=== PATIENT | female | born 1945 | race Caucasian/White ===

== ENCOUNTER 2024-10-28 11:35 | Emergency (ER) | payer MEDICARE, SELFPAY ==
[2024-10-28 11:44] VITALS: BP 112/94; PULSE 80; RESP 20; TEMP 36.7; O2SAT 96
[2024-10-28 11:49] VITALS: BP 135/71
--- NOTE | 2024-10-28 11:50 | ED.URI ---
HPI - URI/Sore Throat General Chief Complaint: Upper Respiratory Infection Stated Complaint: Cough Source: patient Mode of arrival: ambulatory Limitations: no limitations History of Present Illness HPI Narrative: 79-year-old female presented for complaint of nasal congestion, cough, and headache. Onset 1 week.Endorses occasional wheeze. Not taking anything for symptoms. Denies chest pain, palpitations, sob, n/v/d/f/c. Related Data Home Medications ?Medication ?Instructions ?Recorded ?Confirmed ?Last Taken ?Type escitalopram oxalate 10 mg tablet 10 mg PO DAILY 10/28/24 Unknown History ezetimibe 10 mg tablet 10 mg PO DAILY 10/28/24 Unknown History fenofibrate 160 mg tablet 160 mg PO DAILY 10/28/24 Unknown History icosapent ethyl 1 gram capsule 2 g PO BID 10/28/24 Unknown History (Vascepa) metoprolol tartrate 50 mg tablet 50 mg PO Q12H 10/28/24 Unknown History ranolazine 500 mg tablet,extended 500 mg PO Q12H 10/28/24 Unknown History release,12 hr rosuvastatin 40 mg tablet 40 mg PO DAILY 10/28/24 Unknown History spironolactone 25 mg tablet 12.5 mg PO DAILY 10/28/24 Unknown History Allergies Allergy/AdvReac Type Severity Reaction Status Date / Time PAIN MEDS AdvReac Intermediate Nausea and Uncoded 10/28/24 11:52 Vomiting Review of Systems Review of Systems: CONSTITUTIONAL: Denies body aches, fever, chills, or sweats. EYES: Denies visual changes, redness, or discharge. ENT: reports rhinorrhea, congestion, denies sore throat, or otalgia. CARDIOVASCULAR: Denies chest pain, palpitations, or edema. RESPIRATORY: Reports cough, denies sob GASTROINTESTINAL: Denies abdominal pain, nausea, vomiting, or diarrhea. SKIN: Denies rash MUSCULOSKELETAL: Denies back pain, joint pain, or myalgia. NEUROLOGIC: Reports headache All systems reviewed & are unremarkable except as noted in HPI and below PMFSH Comments At time of signature, I have reviewed and agree with nursing past medical, surgical, social and family history unless otherwise noted. Please see nursing chart for further information. There is no relevant family history pertinent to the presenting complaint Exam Narrative: GENERAL: Well-appearing, in no acute distress. EYES: EOMI. No redness or drainage. Conjunctivae normal. ENT: Mucous membranes pink and moist. rhinorrhea. TMs normal bilaterally. Throat normal. Uvula midline. NECK: Normal AROM. Supple. CHEST: No respiratory distress. lungs clear to all chavarria. 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 No murmur appreciated. ABDOMEN: Soft, nontender, nondistended, normal active bowel sounds. EXTREMITIES: Normal range of motion. No edema. SKIN: Warm, dry, no rash. Capillary refill normal. Normal skin turgor. NEURO: Alert and oriented x3. Gait steady. PSYCH: Normal affect. Course Course Emergency Course: Patient is aware of diagnosis, understands and agrees to treatment plan. Anticipatory guidance given. Patient agrees to follow-up as directed and is aware of reasons to seek care at the emergency department. Portions of this record may have been created with voice recognition software Level of Care: Express Care Visit Vital Signs Vital signs: Vital Signs Temperature 98.1 F 10/28/24 11:44 Pulse Rate 80 10/28/24 11:44 Respiratory Rate 20 10/28/24 11:44 Blood Pressure 112/94 H 10/28/24 11:44 Pulse Oximetry 96 10/28/24 11:44 Oxygen Delivery Room Air 10/28/24 11:44 Temperature 98.1 F 10/28/24 11:44 Pulse Rate 80 10/28/24 11:44 Respiratory Rate 20 10/28/24 11:44 Blood Pressure 135/71 10/28/24 11:49 Pulse Oximetry 96 10/28/24 11:44 Oxygen Delivery Room Air 10/28/24 11:44 MDM - URI/Sore Throat MDM Narrative Medical decision making narrative: Discussed physical exam findings c/w bronchitis. Reviewed Rx. Advised supportive measures and signs/symptoms to go to the ER. Pt is appropriate for outpt treatment and f/u. Differential Diagnosis Differential diagnosis: Likely upper respiratory infection, sinusitis, viral infection and bronchitis Discharge Plan Discharge Clinical Impression: Bronchitis Patient Disposition: Home, Self-Care Condition: Stable Instructions: Antibiotic Form, Acute Bronchitis (ED) Additional Instructions: Acute bronchitis can be contagious because it is usually caused by infection with a virus or bacteria. It is usually for a few days but you can be contagious for up to one week. Avoid crowds until you do not have a fever and symptoms are improved Take medication as directed Recommendations: Flonase spray and Zyrtec (or Claritin/Kasie) over the counter Cough syrup may cause drowsiness; avoid driving or take it at night time. Tylenol 1000mg every 8 hours as needed for pain Symptomatic treatment includes: rest, fluids, and increase humidity of the air at home. Follow up with your primary care provider as needed in 1 week Go to the ER for worsening symptoms or concerns Patient Language: Algerian Prescriptions: New prednisone 20 mg tablet 40 mg PO DAILY 4 Days Qty: 8 0RF amoxicillin-pot clavulanate 875-125 mg tablet 1 tablet PO Q12H 7 Days Qty: 14 0RF No Action spironolactone 25 mg tablet 12.5 mg PO DAILY fenofibrate 160 mg tablet 160 mg PO DAILY icosapent ethyl [Vascepa] 1 gram capsule 2 g PO BID ranolazine 500 mg tablet extended release 12 hr 500 mg PO Q12H rosuvastatin 40 mg tablet 40 mg PO DAILY escitalopram oxalate 10 mg tablet 10 mg PO DAILY metoprolol tartrate 50 mg tablet 50 mg PO Q12H ezetimibe 10 mg tablet 10 mg PO DAILY Follow-up/Referrals: Damon,Eliseo Lion MD [Primary Care Provider] - Time of Disposition: 11:57
--- OUTSIDE RECORDS SUMMARY | 2024-11-02 08:55 | XMS_ITS | Clinical Summary ---
Author Organization [facility] Address [address] [place] [address]. [place], [place] [address] [place] [address] Care Team Providers Care Catalyst Impregnator Name Role Phone Armando Coles MD Unavailable Hiral Sexton MD Primary Care Provider +1- [phone] Allergies Active Allergy Reactions Criticality Noted Date Comments Codeine Unknown 03/20/2016 Meperidine Unknown 03/20/2016 Methadone Unknown 08/15/2021 Morphine Unknown 03/20/2016 Naloxone Unknown 03/20/2016 Opium Unknown 08/15/2021 Tramadol Hives 03/20/2016 Medications Aspirin 81 MG Cap Aspirin 81 mg; 1 by mouth every morning; 0; -Jul-2004; Active 4 Active Cholecalciferol (VITAMIN D3) 50 MCG (2000 UT) Tab Take 1 tablet (50 mcg total) by mouth daily. Active nitroglycerin 0.[address] 1 tablet (0.4 mg total) under the tongue every 5 (five) minutes as needed for Chest Pain. 25 tablet 3 1 Active B Complex-C Tab tablet Take 1 tablet by mouth daily. Active spironolactone (ALDACTONE) 25 MG tablet Take 0.5 tablets (12.5 mg total) by mouth daily. 45 tablet 3 2 Active ranolazine ER (RANEXA) 500 MG 12 hr tablet Take 1 tablet (500 mg total) by mouth 2 (two) times daily. 60 tablet 11 2 Active ezetimibe (ZETIA) 10 MG tablet Take 1 tablet (10 mg total) by mouth daily. 90 tablet 3 3 Active fenofibrate 160 MG tabletIndications:M ixed hyperlipidemia TAKE 1 TABLET(160 MG) BY MOUTH DAILY 90 tablet 3 Active magnesium oxide (MAG-OX) 400 (240 Mg) MG tablet Take 1 tablet (400 mg total) by mouth daily. 30 tablet 3 Active escitalopram (LEXAPRO) 10 MG tabletIndications:M ixed hyperlipidemia TAKE 1 TABLET(10 MG) BY MOUTH DAILY 90 tablet 3 Active rosuvastatin (CRESTOR) 40 MG tablet Take 1 tablet (40 mg total) by mouth nightly at bedtime. 90 tablet 3 3 Active metoprolol tartrate (LOPRESSOR) 50 MG tabletIndications:M ixed hyperlipidemia TAKE 1 TABLET(50 MG) BY MOUTH TWICE DAILY 180 tablet 3 Active VASCEPA 1 g capsule Take 2 capsules (2 g total) by mouth 2 (two) times daily. Take with food. 270 capsule 3 4 Active Active Problems Problem Noted Date Diagnosed Date Pre-diabetes 03/15/2022 Muscle spasm 03/15/2022 Primary hypertension 03/15/2022 Anxiety 03/15/2022 Vitamin D deficiency 03/15/2022 Ulcer of rectum 03/15/2022 Diarrhea, unspecified type 03/15/2022 Coronary artery disease invo lving [place] coronary artery of [place] heart without angina pectoris 08/25/2021 Hx of CABG 08/25/2021 Diastolic dysfunction 08/25/2021 Nonrheumatic mitral valve regurgitation 08/25/20 21 Mixed hyperlipidemia 08/25/2021 Concentric left ventricular hypertrophy 08/25/20 21 Resolved Problems Problem Noted Date Diagnosed Date Resolved Date Preop cardiovascular exam 06/29/2022 Immunizations Name Administration Dates Next Due Fluzone High Dose - >Age 65 (Prefilled Syringe) 08/05/2022 Influenza Adult (Generic) 07/21/2021 MODERNA COVID-19 (12+) MRNA, LNP-S, PF, 100 MCG/ 0.5 ML DOSE 12/23/2020,11/25/2020 MODERNA COVID-19 (FLORIST MATT COLIN), MRNA, LNP-S, PF, 50 MCG/ 0.25 ML DOSE 09/16/2021 Family History Medical History Relation Comments Lung Cancer Father CABG Mother Heart Attack Mother Heart Attack Sister Stent Cardiac Sister PTCA Sudden Sister Relation Status Comments Brother 1 Brother 2 Alive Father (Age 57) Maternal Grandfather Maternal Grandmother Mother (Age 76) Paternal Grandfather Paternal Grandmother Sister Social History Tobacco Use Types Packs/Day Years Used Date Smoking Tobacco: Former Cigarettes 0.3 15 1 977 - 1991 Smokeless Tobacco: Never Tobacco Cessation:Counseling Given: Not Answered Alcohol Use Standard Drinks/Week Comments Yes 0 (1 standard drink = 0.6 oz pur e alcohol) occasional PHQ-2 Answer Date Recorded Patient Health Questionnaire-2 Score 0 03/18/2023 Comments No Sex and Gender Information Value Date Recorded Sex Assigned at Not on file Legal Sex Female 6:52 PM CDT Gender Identity Not on file Sexual Orientation Not on file Occupation Industry Job Start Date Job End Date Not on file Not on file Not on file Not on file Last Filed Vital Signs Vital Sign Reading Time Taken Comments Blood Pressure 112/68 06/30/2023 9:27 AM CDT Pulse 70 06/30/2023 9:27 AM CDT Temperature 36.3 ??C (97.3 ??F) 03/18/2023 9:29 AM CD T Respiratory Rate 18 06/30/2023 9:22 AM CDT Oxygen Saturation 96% 03/18/2023 9:29 AM CDT Inhaled Oxygen Concentration - - Weight 68.6 kg (151 lb 3.2 oz) 06/30/2023 9:22 A M CDT Height 160 cm (5' 3 ) 06/30/2023 9:22 AM CDT Body Mass Index 26.78 06/30/2023 9:22 AM CDT Plan of Treatment Health Maintenance Due Date Last Done Comments ASCVD Statin 1945 Pneumococcal Vaccine: 65+ Years (1 of 2 - PCV) 1952 Hepatitis C 1964 DTaP, Tdap and Td Vaccines (1 - Tdap) 1965 Zoster Vaccines (1 of 2) 1996 Annual Medicare Wellness Visit 2011 RSV Immunization or 60+ Years (1 - 1-dose 75+ series) 2021 ASCVD LDL 03/18/2024 03/18/2023, 12/0 02/2022, 03/13/2022, Additional history exists PHQ-2 (Physician [place]) 03/18/2024 03/18/2023 COVID-19 Vaccine ( season) 2024 09/16/2021, 12/23/2020, 11/25/2020 Influenza Adult (#1) 2024 08/05/2022, 07/21/20 21 Dexa Scan (General) Completed 04/19/2023 Meningococcal B Vaccine Aged Out No l onger eligible based on patient's age to complete this topic Meningococcal Vaccine Aged Out No kellen jessica eligible based on patient's age to complete this topic RSV Immunizations Under 20 Months Aged Out No longer eligible based on patient's age to complete this topic Procedures Procedure Name Priority Date/Time Associated Diagnosis Comments BONE DENSITY/DEXA Routine 04/19/2023 9:2 8 AM CDT Post-menopausal LIPID PANEL Routine 03/18/2023 10:14 AM CDT Mixed hyperlipidemia from Last 3 Months or Most Recently Relevant to Health Maintenance Results * BONE DENSITY/DEXA (04/19/2023 9:28 AM CDT) Anatomical Region Laterality Modality Bone Bone Density 04/19/2023 2:14 PM CDT Impressions 04/19/2023 2:15 PM CDT Impression: Low bone mass (osteopenia). Ordered By: DESTIN BARRETT Interpreted By: Danny Traore DO, 04/19/2023 2:14 PM Narrative 04/19/2023 2:15 PM CDT Examination: DEXA Bone densitometry Clinical history: Postmenopausal. Osteoporosis screening. Technique: DEXA bone mineral density evaluation was performed in the AP projection over the lumbar spine and over both hips in the AP projection utilizing standard imaging techniques. COMPARISON: None. Assessment: The BMD measured at the AP spine L1-L4 is 0.931 g/cm2 with a T-score of -2.1 and a Z-Score of ??-0.4. The BMD of the total left femur is 0.822 g/cm2, the femoral neck measures 0.763 g/cm2, with a T-score of -2.0 and a Z-Score of -0.1. The BMD of the total right femur is 0.838 g/cm2, the femoral neck measures 0.782 g/cm2, with a T-score of -1.8 and a Z-Score of ??0.1. Based upon the above measurements, the patient has low bone mass. Per FRAX, the patient's 10 year risk of major osteoporotic fracture is 20.9%. The 10 year risk of hip fracture is 5.3%. Based on these results, a followup exam is recommended in 2 years or sooner if clinically indicated. Procedure Note Danny Traore DO - 04/19/2023 Examination: DEXA Bone densitometry Clinical history: Postmenopausal. Osteoporosis screening. Technique: DEXA bone mineral density evaluation was performed in the APprojection over the lumbar spine and over both hips in the AP projectionutilizing standard imaging techniques. COMPARISON: None. Assessment: The BMD measured at the AP spine L1-L4 is 0.931 g/cm2 with a T-score of-2.1 and a Z-Score of -0.4. The BMD of the total left femur is 0.822 g/cm2, the femoral neck measures0.763 g/cm2, with a T-score of -2.0 and a Z-Score of -0.1. The BMD of the total right femur is 0.838 g/cm2, the femoral neck measures0.782 g/cm2, with a T-score of -1.8 and a Z-Score of 0.1. Based upon the above measurements, the patient has low bone mass. Per FRAX, the patient's 10 year risk of major osteoporotic fracture is20.9%. The 10 year risk of hip fracture is 5.3%. Based on these results, a followup exam is recommended in 2 years orsooner if clinically indicated. Impression: Low bone mass (osteopenia). Ordered By: DESTIN BARRETT Interpreted By: Danny Traore DO, 04/19/2023 2:14 PM Destin Barrett MD DEXA Final Result * (ABNORMAL) LIPID PANEL (03/18/2023 10:14 AM CDT) CHOLESTEROL 135 <200 MG/DL 03/18/2023 1:37 PM CDT [facility] TRIGLYCERIDES 206(H) <150 MG/DL 03/18/2023 1:37 PM CDT [facility] HDL 39(L) >40 MG/DL 03/18/2023 1:37 PM CDT [facility] LDL-C 55 <100 MG/DL 03/18/2023 1:37 PM CDT [facility] VLDL CALCULATION 41(H) 5 - 28 MG/DL 03/18/2023 1:37 PM CDT [facility] CHOL/HDL RATIO 3.5 0.0 - 4.0 03/18/2023 1:37 PM CDT [facility] LDL/HDL 1.4 0.41 - 2.13 03/18/2023 1:37 PM CDT [facility] NON HDL CHOLESTEROL 96 <140 MG/DL 03/18/2023 1:37 PM CDT [facility] 03/18/2023 10:1 4 AM CDT Hiral Mohamud MD LABORATORY Final Resu lt [facility] [address] [place] [address], [place] [phone] from Last 3 Months or Most Recently Relevant to Health Maintenance Insurance [employer] Care Teams Catalyst Impregnator Relationship Specialty Start Date End Date Hiral Mohamud MD [address] [place] [address] PCP - General FAMILY PRACTICE 03/13/22 Armando Coles MD Consulting Physician CARDIOVASCULAR DISEASE 08/14/21
--- OUTSIDE RECORDS SUMMARY | 2024-11-02 08:55 | XMS_ITS | Encounter Summary ---
Author Organization [facility] Address [facility]. [place], [place] [address] [place] [address] Care Team Providers Care Cold Roll Inspector Name Role Phone Armando Coles MD [facility] Primary Care Provider [phone]- [phone] Encounter Details Date Type Department Care Team (Late st Contact Info) Description 02/22/2023 [employer] Thankyou[employer] Hotel [employer] Grouph[employer] Message Enc [facility] Medical Group - [facility] [address] [place] [address] Hiral Mohamud MD [address] [place] [address] Refill Social History Tobacco Use Types Packs/Day Years Used Date Smoking Tobacco: Former Cigarettes 0.3 15 1 977 - 1992 Smokeless Tobacco: Never Alcohol Use Standard Drinks/Week Comments Yes 0 (1 standard drink = 0.6 oz pur e alcohol) occasional PHQ-2 Answer Date Recorded PHQ-2 Score - If the patient scores above 3, please move on to questions 3-9 0 09/14/2022 Comments No Sex and Gender Information Value Date Recorded Sex Assigned at Not on file Legal Sex Female 6:52 PM CDT Gender Identity Not on file Sexual Orientation Not on file Occupation Industry Job Start Date Job End Date Not on file Not on file Not on file Not on file documented as of this encounter Plan of Treatment Not on file documented as of this encounter Visit Diagnoses Not on filedocumented in this encounter Additional Health Concerns Assessment Noted Time PHQ-9 Depression Total Score: 0 10/22/19 22 10:51 AM KITCHEN FOOD SERVER documented as of this encounter Care Teams Cold Roll Inspector Relationship Specialty Start Date End Date Hiral Mohamud MD [facility] [place] [address] PCP - General FAMILY PRACTICE 03/13/22 Armando Coles MD Consulting Physician CARDIOVASCULAR DISEASE 08/14/21 documented as of this encounter
--- OUTSIDE RECORDS SUMMARY | 2024-11-02 08:55 | XMS_ITS | Encounter Summary ---
Author Organization [facility] Address [address] [place] [address]. [place], [place] [id number] [place] [address] Care Team Providers Care Water Rights Specialist Name Role Phone Armando Coles MD Unavailable [facility] Hiral Gutierrez MD Primary Care Provider [phone]- [phone] Encounter Details Date Type Department Care Team (Late st Contact Info) Description 06/23/2023 [facility] [place] [phone] Armando Coles MD Social History Tobacco Use Types Packs/Day Years [...] Total Score: 0 10/22/19 22 10:51 AM AVIONICS TEST TECHNICIAN documented as of this encounter Care Teams Water Rights Specialist Relationship Specialty Start Date End Date Hiral Mohamud MD [address] [place] [address] PCP - General FAMILY PRACTICE 03/13/22 Armando Coles MD Consulting Physician CARDIOVASCULAR DISEASE 08/14/21 documented as of this encounter
--- OUTSIDE RECORDS SUMMARY | 2024-11-02 08:55 | XMS_ITS | Encounter Summary ---
Author Organization [facility] Address [facility]. [place], [place] [address] [place] [address] Care Team Providers Care Prison Keeper Name Role Phone Armando Coles MD [facility] Hiral Sexton MD Primary Care Provider + [phone] Encounter Details Date Type Department Care Team (Late st Contact Info) Description 08/24/2023 [employer] Message [facility] - [place] [phone] [employer] Provider Needed Immunizations Social History Tobacco Use Types Packs/Day Years Used Date Smoking Tobacco: Former Cigarettes 0.3 15 1 7 - 1991 Smokeless Tobacco: Never Alcohol Use Standard Drinks/Week [...] Total Score: 0 10/22/19 22 10:51 AM EDITOR AT LARGE documented as of this encounter Care Teams Prison Keeper Relationship Specialty Start Date End Date Hiral Mohamud MD [address] [place] [address] PCP - General FAMILY PRACTICE 03/13/22 Armando Coles MD Consulting Physician CARDIOVASCULAR DISEASE 08/14/21 documented as of this encounter
--- OUTSIDE RECORDS SUMMARY | 2024-11-02 08:56 | XMS_ITS | Encounter Summary ---
Author Organization [facility] Address [facility]. [place], [place] [id number] [place] [address] Care Team Providers Care Candy Mixer Name Role Phone Armando Coles MD [facility] Primary Care Provider [phone]- [phone] Encounter Details Date Type Department Care Team (Late st Contact Info) Description 08/24/2022 MyChart Message Enc [facility] Medical [facility] - [facility] [address] [place] [phone] Hiral Mohamud MD [address] [place] [address] Refills Social History Tobacco Use Types Packs/Day Years Used Date Smoking Tobacco: Former Cigarettes 0.3 15 1 977 - 1992 Smokeless Tobacco: Never Alcohol Use Standard Drinks/Week Comments Yes 0 (1 standard drink = 0.6 oz pur e alcohol) occasional PHQ-2 Answer Date Recorded PHQ-2 Score - If the patient scores above 3, please move on to questions 3-9 0 03/13/2022 Comments No Sex and Gender Information Value Date Recorded Sex Assigned at Not on file Legal Sex Female 6:52 PM CDT Gender Identity Not on file Sexual Orientation Not on file Occupation Industry Job Start Date Job End Date Not on file Not on file Not on file Not on file COVID-19 Exposure Response Date Recorded In the last 10 days, have yo u been in contact with someone who was confirmed or suspected to have Coronavirus/COVID-19? No / Unsure 08/05/2022 11:40 AM CDT documented as of this encounter Plan of Treatment Not on file documented as of this encounter Visit Diagnoses Not on filedocumented in this encounter Additional Health Concerns Assessment Noted Time PHQ-9 Depression Total Score: 0 10/22/19 22 10:51 AM RETINAL SURGEON documented as of this encounter Care Teams Candy Mixer Relationship Specialty Start Date End Date Hiral Mohamud MD [address] [place] [address] PCP - General FAMILY PRACTICE 03/13/22 Armando Coles MD Consulting Physician CARDIOVASCULAR DISEASE 08/14/21 documented as of this encounter
--- OUTSIDE RECORDS SUMMARY | 2024-11-02 08:56 | XMS_ITS | Encounter Summary ---
Author Organization [facility] Address [facility]6 [facility]. [place], [place] [address] [place] [address] Care Team Providers Care Model And Mold Maker Plaster Name Role Phone Armando Coles MD [facility] MD Primary Care Provider +1- [phone] Encounter Details Date Type Department Care Team (Late st Contact Info) Description 07/13/[address] [facility] - [facility] [address] [place], [place] [address] Hiral Mohamud MD [address] [place] [address] Refills Social History Tobacco Use Types Packs/Day [...] suspected to have Coronavirus/COVID-19? No / Unsure 06/29/2022 11:53 AM CDT documented as of this encounter Plan of Treatment Not on file documented as of this encounter Visit Diagnoses Not on filedocumented in this encounter Additional Health Concerns Assessment Noted Time PHQ-9 Depression Total Score: 0 10/22/19 22 10:51 AM CSW documented as of this encounter Care Teams Model And Mold Maker Plaster Relationship Specialty Start Date End Date Hiral Mohamud MD [address] [place] [address] PCP - General FAMILY PRACTICE 03/13/22 Armando Coles MD Consulting Physician CARDIOVASCULAR DISEASE 08/14/21 documented as of this encounter
--- OUTSIDE RECORDS SUMMARY | 2024-11-02 08:56 | XMS_ITS | Encounter Summary ---
Author Organization [facility] Address [facility]6 [facility]. [place], [place] [address] [place] [address] Care Team Providers Care Federal Judicial Law Clerk Name Role Phone Armando Coles MD [facility] MD Primary Care Provider [phone] Encounter Details Date Type Department Care Team (Late st Contact Info) Description 04/09/2022 MyChart Message Enc [facility] [address] [place], [place] [address] Hiral Mohamud MD [address] [place] [address] Refills Social History Tobacco Use Types Packs/Day [...] suspected to have Coronavirus/COVID-19? No / Unsure 03/13/2022 8:03 AM CDT documented as of this encounter Plan of Treatment Not on file documented as of this encounter Visit Diagnoses Not on filedocumented in this encounter Additional Health Concerns Assessment Noted Time PHQ-9 Depression Total Score: 0 10/22/19 22 10:51 AM SUPERVISOR FISH BAIT PROCESSING documented as of this encounter Care Teams Federal Judicial Law Clerk Relationship Specialty Start Date End Date Hiral Mohamud MD [address] [place] [address] PCP - General FAMILY PRACTICE 03/13/22 Armando Coles MD Consulting Physician CARDIOVASCULAR DISEASE 08/14/21 documented as of this encounter
--- OUTSIDE RECORDS SUMMARY | 2024-11-02 08:56 | XMS_ITS | Encounter Summary ---
Author Organization [facility] Address [address] [place] [address]. [place], [place] [address] [place] [address] Care Team Providers Care Aircraft Sales Representative Name Role Phone Armando Coles MD Unavailable [facility] e Hiral Mohamud MD Primary Care Provider [phone]- [phone] Encounter Details Date Type Department Care Team (Late st Contact Info) Description 10/26/2022 [email or web address] Message Enc [facility] eld [address] [place] [address] Armando Coles MD Refills Social History Tobacco Use Types Packs/Day Years Used Date Smoking Tobacco: Former Cigarettes 0.3 15 1 977 - 1991 Smokeless Tobacco: Never Alcohol Use [...] Total Score: 0 10/22/19 22 10:51 AM DENTURE CONTOUR WIRE SPECIALIST documented as of this encounter Care Teams Aircraft Sales Representative Relationship Specialty Start Date End Date Hiral Mohamud MD [address] [place] [address] PCP - General FAMILY PRACTICE 03/13/22 Armando Coles MD Consulting Physician CARDIOVASCULAR DISEASE 08/14/21 documented as of this encounter
--- OUTSIDE RECORDS SUMMARY | 2024-11-02 08:56 | XMS_ITS | Clinical Summary ---
Author Organization [employer] [address] [place] [place] Address [address] [place] [address] Care Team Providers Care Spoon Maker Name Role Phone Eliseo Jose MD Primary Care Provider [phone] Allergies Active Allergy Reactions Criticality Noted Date Comments Codeine Unknown 03/20/2016 Meperidine Unknown 03/20/2016 Methadone Unknown 08/15/2021 Morphine Unknown 03/20/2016 Naloxone Unknown 03/20/2016 Opium Unknown 08/15/2021 Tramadol Hives High 03/20/2016 Medications CALCIUM CARBONATE-VITAMIN D3 ORAL Take by mouth. Active aspirin (ANIA CHEWABLE) 81 mg Tablet, Chewable Take 81 mg by mouth daily. Active viatamin B complex-vitamin K-tsueobgr-jczd-fo lic acid 106 mg iron- 1 mg Tablet Take 1 Tablet by mouth daily. Active hyoscyamine sulfate 0.125 mg tabletIndications: Chronic diarrhea Take 1 Tablet (0.125 mg) by mouth every 4 hours as needed for Other (See Comment) (diarrhea abd cramping). 90 Tablet 1 3 Active nitroglycerin (NITROSTAT) 0.4 mg Tablet, Sublingual Place 0.4 mg under tongue every 5 minutes as needed. 1 Active ezetimibe (ZETIA) 10 mg tablet Take 1 Tablet (10 mg) by mouth daily. 100 Tablet 3 4 Active icosapent ethyL (Vascepa) 1 gram Capsule Take 2 Capsules (2 Grams) by mouth 2 times daily with meals. 120 Capsule 6 4 Active diclofenac sodium (VOLTAREN) 1 % gel Apply 2 Grams to affected area 4 times daily. 300 Gram 3 4 Active gabapentin (NEURONTIN) 300 mg capsule Take 1 Capsule (300 mg) by mouth daily at bedtime. 30 Capsule 6 4 Active cyclobenzaprine (FLEXERIL) 5 mg TabletIndications: Osteoarthritis of cervical spine, unspecified spinal osteoarthritis complication status Take 1 Tablet (5 mg) by mouth 2 times daily as needed for Spasm. 60 Tablet 2 4 Active metoprolol tartrate (LOPRESSOR) 50 mg tablet Take 1 Tablet (50 mg) by mouth 2 times daily. 180 Tablet 2 4 Active escitalopram oxalate (LEXAPRO) 10 mg tablet Take 1 Tablet (10 mg) by mouth daily. 90 Tablet 2 4 Active rosuvastatin (CRESTOR) 40 mg tabletIndications: Coronary artery disease involving [place] coronary artery of [place] heart without angina pectoris Take 1 Tablet (40 mg) by mouth daily. 100 Tablet 3 4 Active spironolactone (ALDACTONE) 25 mg tablet Take 0.5 Tablets (12.5 mg) by mouth daily. 50 Tablet 3 4 Active fenofibrate (LOFIBRA) 160 mg Tablet Take 1 Tablet (160 mg) by mouth daily. 100 Tablet 3 4 Active ranolazine ER (RANEXA) 500 mg Extended Release 12 hour tablet Take 1 Tablet (500 mg) by mouth every 12 hours. 200 Tablet 3 5 Active ranolazine ER (RANEXA) 500 mg Extended Release 12 hour tablet Take 1 Tablet (500 mg) by mouth every 12 hours. 180 Tablet 3 3 025 Discontin ued(Reord er) Active Problems Problem Noted Date Diagnosed Date Tricuspid valve insufficiency 10/05/2023 Anxiety 03/15/2022 Pre-diabetes 03/15/2022 Primary hypertension 03/15/2022 Vitamin D deficiency 03/15/2022 Coronary artery disease invo lving [place] coronary artery of [place] heart without angina pectoris 08/25/2021 Hx of CABG 08/25/2021 Mixed hyperlipidemia 08/25/2021 Nonrheumatic mitral valve regurgitation 08/25/20 21 Diastolic dysfunction 08/25/2021 Encounters Date Type Department Care Team Description 10/12/2024 [facility] Primary Care [place] [address] [place] [address] Eliseo Jose MD 09/26/2024 1:15 PM COSMETIC SALES ADVISOR Office Visit [facility] [address] [facility] [address] [place] [address] James Rosario MD Coronary artery disease involving [place] coronary artery of [place] heart without angina pectoris (Primary Dx); Hx of CABG; Nonrheumatic mitral valve regurgitation; Tricuspid valve insufficiency, unspecified etiology; Diastolic dysfunction; Mixed hyperlipidemia; Primary hypertension 08/29/2024 Refill [facility] Primary Care [facility] [address] [place] [address] Eliseo Jose MD 08/23/2024 12:40 PM COSMETIC SALES ADVISOR - 08/23/2024 11:59 PM COSMETIC SALES ADVISOR Hospital Encounter [address] [place] [address] Eliseo Jose MD Discharge Disposition: Home or Self Care from Last 3 Months Immunizations Immunization Administration Dates Next Due (SPIKEVAX) (12 YRS UP PRIMAR Y SERIES) COVID-19 VACCINE - MRNA-1273(PF) 100 MCG/0.5 ML IM SUSP 12/23/2020,11/25/2020 INFLUENZA VACCINE HIGH DOSE QUADRIVALENT 65 YR UP PF IM 08/17/2023,08/05/2022 INFLUENZA VACCINE HIGH DOSE TRIVALENT SPLIT VIRUS, (65 YR UP), 0.5ML (PF), IM 06/22/2024 Influenza, Unspecified Formulation 07/21/2021 Family History Medical History Relation Name Comments High Cholesterol Daughter 1 High Cholesterol Daughter 2 Lung Cancer Father Lung Cancer Maternal Grandfather Diabetes Maternal Grandmother High Cholesterol Mother No Known Problems Paternal Grandfather Dementia Paternal Grandmother Heart Attack Paternal Grandmother Heart Attack Sister High Cholesterol Son Colon Cancer Neg Hx Relation Name Status Comments Daughter 1 Daughter 2 Alive Father Maternal Grandfather Maternal Grandmother Mother Paternal Grandfather Paternal Grandmother Sister Son Social History Tobacco Use Types Packs/Day Years Used Date Smoking Tobacco: Former Cigarettes Q uit: 1991 Passive Smoke Exposure: Never Smokeless Tobacco: Never Tobacco Cessation:Counseling Given: Not Answered Alcohol Use Standard Drinks/Week Comments Yes 2 (1 standard drink = 0.6 oz pur e alcohol) occ Feeling Safe Answer Date Recorded Are you in a relationship wi th someone who hurts you emotionally and/or physically? No 07/11/2024 Comments No Sex and Gender Information Value Date Recorded Sex Assigned at Not on file Legal Sex Female 1:45 PM CDT Gender Identity Not on file Sexual Orientation Not on file Last Filed Vital Signs Vital Sign Reading Time Taken Comments Blood Pressure 128/70 09/26/2024 1:14 PM COSMETIC SALES ADVISOR Pulse 63 09/26/2024 1:14 PM COSMETIC SALES ADVISOR Temperature 36.4 ??C (97.6 ??F) 07/11/2024 11:50 AM C DT Respiratory Rate 18 07/11/2024 12:10 PM CDT Oxygen Saturation 95% 09/26/2024 1:14 PM COSMETIC SALES ADVISOR Inhaled Oxygen Concentration - - Weight 69.4 kg (153 lb) 09/26/2024 1:14 PM COSMETIC SALES ADVISOR Height 157.5 cm (5' 2 ) 09/26/2024 1:14 PM COSMETIC SALES ADVISOR Body Mass Index 27.98 09/26/2024 1:14 PM COSMETIC SALES ADVISOR Plan of Treatment Upcoming Encounters Date Type Department Care Team (Late st Contact Info) Description 12/21/2024 11:20 AM CDT Office Visit [facility] Primary Care [address] [place] [address] Eliseo Jose MD [address] [place] [address] [address] [place] [address] 04/03/2025 1:15 PM CDT Office Visit [facility] [address] [facility] [address] [place] [address] James Rosario MD [facility] [address] [place] [address] Health Maintenance Due Date Last Done Comments DTAP/TDAP/TD VACCINES (1 - Tdap) 1965 PNEUMOCOCCAL VACCINE 65+ YEA RS (1 of 1 - PCV) 1996 ZOSTER VACCINE (1 of 2) 1996 RSV VACCINE (60+ or ) (1 - 1-dose 75+ series) 2021 COVID-19 Vaccine (4 - 2023-2 5 season) 2024 09/16/2021, 12/23/2020, 11/25/2020 [place] Prev entative Visit/Annual Wellness Visit 10/11/2024 OSTEOPOROSIS SCREENING Completed 04/19/2023, 2022 INFLUENZA VACCINE Completed 06/22/2024, , 08/05/2022 COLORECTAL SCREENING Discontinued 07/11/2024, 07/11/20 24 Colorectal Cancer Screening Discontinued FIT-DNA Q 3 years Discontinued FIT/FOBT Q 1 year Discontinued Flex Sig/CT Colonography Q 5 years Discontinued Procedures Procedure Name Priority Date/Time Associated Diagnosis Comments MAMMO 3D TERE SCREEN BILAT W OR WO CAD Routine 08/23/2024 12:54 PM COSMETIC SALES ADVISOR Visit for screening mammogram COLONOSCOPY REPORT 07/11/2024 11 :49 AM CDT from Last 3 Months or Most Recently Relevant to Health Maintenance Results * MAMMO 3D TERE SCREEN BILAT W OR WO CAD (08/23/2024 12:54 PM COSMETIC SALES ADVISOR) Anatomical Region Laterality Modality Breast Bilateral Mammography 08/23/2024 12:5 4 PM COSMETIC SALES ADVISOR Impressions 08/23/2024 1:32 PM COSMETIC SALES ADVISOR IMPRESSION: No mammographic evidence of malignancy. RECOMMENDATIONS: Routine screening mammogram in one year. DICTATION LOCATION: [facility] ?? Narrative 08/23/2024 1:32 PM COSMETIC SALES ADVISOR BILATERAL FULL-FIELD DIGITAL SCREENING MAMMOGRAM WITH CAD WITH 3D TOMOSYNTHESIS DATE: 08/23/2024 12:54 PM HISTORY: Routine screening. TECHNIQUE: Full-field digital craniocaudal and mediolateral oblique projections of both breasts were obtained. Low-dose full-field digital breast tomosynthesis examination was performed with 2D and 3D acquisitions. Examination is read in conjunction with computer aided detection. COMPARISON: 2019, 2018, 2017. BREAST COMPOSITION: There are scattered areas of fibroglandular density. FINDINGS: No suspicious mass, suspicious microcalcifications, or architectural distortion in either breast is identified. Since the prior study, there has been no significant interval change. The computer aided diagnosis detects no significant abnormality. OVERALL FINAL ASSESSMENT: ??BI-RADS CATEGORY 1 : Negative Procedure Note Estuardo Cain MD - 08/23/2024 BILATERAL FULL-FIELD DIGITAL SCREENING MAMMOGRAM WITH CAD WITH 3D TOMOSYNTHESIS DATE: 08/23/2024 12:54 PM HISTORY: Routine screening. TECHNIQUE: Full-field digital craniocaudal and mediolateral oblique projections of both breasts were obtained. Low-dose full-field digital breast tomosynthesis examination was performed with 2D and 3D acquisitions. Examination is read in conjunction with computer aided detection. COMPARISON: 2019, 2018, 2017. BREAST COMPOSITION: There are scattered areas of fibroglandular density. FINDINGS: No suspicious mass, suspicious microcalcifications, or architectural distortion in either breast is identified. Since the prior study, there has been no significant interval change. The computer aided diagnosis detects no significant abnormality. OVERALL FINAL ASSESSMENT: BI-RADS CATEGORY 1 : Negative IMPRESSION: No mammographic evidence of malignancy. RECOMMENDATIONS: Routine screening mammogram in one year. DICTATION LOCATION: [facility] us Eliseo Jose MD MAMMO ORDERABLES Final Result * COLONOSCOPY REPORT (07/11/2024 11:49 AM CDT) Narrative Procedure Note Jennifer Saldivar MD - 07/11/2024 11:49 AM CDT [facility] Endoscopy Patient Name: Martine Manzo Procedure Date: 07/11/2024 Date of : 1945 Attending MD: Jennifer Saldivar MD, Procedure: Colonoscopy Indications: Screening for colorectal malignant neoplasm Providers: Jennifer Saldivar MD Referring MD: Eliseo Jose MD Medicines: Monitored Anesthesia Care Complications: No immediate complications. Procedure: Informed consent was obtained for the procedure, including moderate sedation after risks were discussed. Based on the pre-procedure assessment, including review of the patient's medical history, medications, allergies, and review of systems, the patient was deemed to be an appropriate candidate for sedation. A timeout was performed. Continuous ECG monitoring, pulse oximetry, blood pressure monitoring, and direct observation were performed. The Colonoscope was introduced through the anus and advanced to the cecum, identified by appendiceal orifice and ileocecal valve. The colonoscopy was somewhat difficult due to a redundant colon. The patient tolerated the procedure well. The quality of the bowel preparation was excellent. The ileocecal valve, appendiceal orifice, and rectum were photographed. Estimated Blood Loss: Estimated blood loss: none. Findings: The perianal and digital rectal examinations were normal. Right colon was evaluated twice in forward view Multiple medium-mouthed and small-mouthed diverticula were found in the sigmoid colon, descending colon and ascending colon. Internal hemorrhoids were found during retroflexion. The hemorrhoids were small. Long redundant colon The exam was otherwise without abnormality on direct and retroflexion views. Impression: - Diverticulosis in the sigmoid colon, in the descending colon and in the ascending colon. - Internal hemorrhoids. - The examination was otherwise normal on direct and retroflexion views. - No specimens collected. Recommendation: - Discharge patient to home. - Resume previous diet. - Continue present medications. - Given age and no prior history of adenomatous polyps, reasonable to stop colon cancer screening at this time Jennifer Saldivar MD 07/11/2024 11:49:07 AM This report has been signed electronically. Number of Addenda: [phone] ; [place] [address] Jennifer Saldivar MD GI PROCEDURE ORDERABLES F inal Result from Last 3 Months or Most Recently Relevant to Health Maintenance Insurance [employer] CHOICE PPO [facility] Care Teams Spoon Maker Relationship Specialty Start Date End Date Eliseo Jose MD [address] [place] [address] PCP - General Internal Medicine 08/17/23
--- OUTSIDE RECORDS SUMMARY | 2024-11-02 08:56 | XMS_ITS | Encounter Summary ---
Author Organization [facility] Address [facility]. [place], [place] [address] [place] [address] Care Team Providers Care Xerox Machine Assembler Name Role Phone Armando Coles MD [facility] MD Primary Care Provider [phone]- [phone] Encounter Details Date Type Department Care Team (Late st Contact Info) Description 01/12/2023 [email or web address] Message Enc [facility] [address] [place] [address] Hiral Mohamud MD [address] [place] [address] Refills Social History Tobacco Use Types Packs/Day [...] Total Score: 0 10/22/19 22 10:51 AM MEDIA CENTER ASSISTANT documented as of this encounter Care Teams Xerox Machine Assembler Relationship Specialty Start Date End Date Hiral Mohamud MD [facility] [place] [address] PCP - General FAMILY PRACTICE 03/13/22 Armando Coles MD Consulting Physician CARDIOVASCULAR DISEASE 08/14/21 documented as of this encounter
--- OUTSIDE RECORDS SUMMARY | 2024-11-02 08:56 | XMS_ITS | Encounter Summary ---
Author Organization [facility] Address [facility]. [place], [place] [address] [place] [address] Care Team Providers Care Assistant Customer Service Manager Name Role Phone Armando Coles MD [facility] MD Primary Care Provider [phone]- [phone] Encounter Details Date Type Department Care Team (Late st Contact Info) Description 11/19/2022 BehavioSect Message Enc [facility] - [facility] [address] [place] [address] Hiral Mohamud MD [address] [place] [address] REFILLS Social History Tobacco Use Types Packs/Day Years [...] Total Score: 0 10/22/19 22 10:51 AM COMMISSION BROKER documented as of this encounter Care Teams Assistant Customer Service Manager Relationship Specialty Start Date End Date Hiral Mohamud MD [facility] [place] [address] PCP - General FAMILY PRACTICE 03/13/22 Armando Coles MD Consulting Physician CARDIOVASCULAR DISEASE 08/14/21 documented as of this encounter
--- OUTSIDE RECORDS SUMMARY | 2024-11-02 08:56 | XMS_ITS | Encounter Summary ---
Author Organization [facility] Address [address] [place] [address]. [place], [place] [address] [place] [address] Care Team Providers Care Valet Attendant Name Role Phone Bharti Hancock MD Primary Care Provider [phone] Armando Coles MD [facility] Primary Care Provider +[phone]- [phone] Encounter Details Date Type Department Care Team (Late st Contact Info) Description 09/15/2021 IncellDx Message Enc [facility] eld [address] [place] [address] Armando Coles MD follow up Social History Tobacco Use Types Packs/Day Years Used Date Smoking Tobacco: Former Cigarettes Q uit: 1991 Smokeless Tobacco: Never Alcohol Use Standard Drinks/Week Comments Yes 0 (1 standard drink = 0.6 oz pur e alcohol) occasional PHQ-2 Answer Date Recorded PHQ-2 Score - If the patient scores above 3, please move on to questions 3-9 0 08/13/2021 Comments No Sex and Gender Information Value Date Recorded Sex Assigned at Not on file Legal Sex Female 6:52 PM CDT Gender Identity Not on file Sexual Orientation Not on file Occupation Industry Job Start Date Job End Date Not on file Not on file Not on file Not on file COVID-19 Exposure Response Date Recorded In the last month, have you been in contact with someone who was confirmed or suspected to have Coronavirus / COVID-19? No / Unsure 09/16/2021 11:50 AM SUPERINTENDENT PRODUCTION documented as of this encounter Plan of Treatment Not on file documented as of this encounter Visit Diagnoses Not on filedocumented in this encounter Additional Health Concerns Assessment Noted Time PHQ-9 Depression Total Score: 0 08/13/20 21 1:29 PM CDT documented as of this encounter Care Teams Valet Attendant Relationship Specialty Start Date End Date Bharti Hancock MD [address] [place] [address] PCP - General FAMILY PRACTICE 08/07/21 03/12/22 Hiral Mohamud MD [address] [place], [place] [address] PCP - General FAMILY PRACTICE 03/13/22 Armando Coles MD [address] [place] [address] Consulting Physician CARDIOVASCULAR DISEASE 08/14/21 documented as of this encounter
--- OUTSIDE RECORDS SUMMARY | 2024-11-02 08:56 | XMS_ITS | Encounter Summary ---
Author Organization [facility] Address [address] [place] [address]. [place], [place] [address] [place] [address] Care Team Providers Care Security Officer Name Role Phone Bharti Hancock MD Primary Care Provider [phone] Armando Coles MD [facility] Primary Care Provider +- [phone] Encounter Details Date Type Department Care Team (Late st Contact Info) Description 01/27/2022 Intuitive Motion Message Enc [facility] eld [address] [place] [address] Armando Coles MD Refill Social History Tobacco Use Types Packs/Day Years Used Date Smoking Tobacco: Former Cigarettes 0.3 15 1 7 - 1991 Smokeless Tobacco: Never Alcohol Use Standard Drinks/Week Comments Yes 0 (1 standard drink = 0.6 oz pur e alcohol) occasional PHQ-2 Answer Date Recorded PHQ-2 Score - If the patient scores above 3, please move on to questions 3-9 0 10/22/2021 Comments No Sex and Gender Information Value [...] Total Score: 0 10/22/19 22 10:51 AM LOWER IN SUPERVISOR documented as of this encounter Care Teams Security Officer Relationship Specialty Start Date End Date Bharti Hancock MD [address] [place] [address] PCP - General FAMILY PRACTICE 08/07/21 03/12/22 Hiral Mohamud MD [address] [place] [address] PCP - General FAMILY PRACTICE 03/13/22 Armando Coles MD [address] [place] [address] Consulting Physician CARDIOVASCULAR DISEASE 08/14/21 documented as of this encounter
--- OUTSIDE RECORDS SUMMARY | 2024-11-02 08:56 | XMS_ITS | Encounter Summary ---
Author Organization [facility] Address [address] [place] [address]. [place], [place] [address] [place] [address] Care Team Providers Care Canal Equipment Mechanic Name Role Phone Bharti Hancock MD Primary Care Provider [phone] Armando Coles MD [facility] Primary Care Provider [phone]- [phone] Encounter Details Date Type Department Care Team (Late st Contact Info) Description 08/18/2021 Abstract [facility] [address] [place] [address] Armando Coles MD Social History Tobacco Use [...] have Coronavirus / COVID-19? No / Unsure 08/13/2021 12:40 PM CDT documented as of this encounter Plan of Treatment Not on file documented as of this encounter Visit Diagnoses Not on filedocumented in this encounter Additional Health Concerns Assessment Noted Time PHQ-9 Depression Total Score: 0 08/13/20 21 1:29 PM CDT documented as of this encounter Care Teams Canal Equipment Mechanic Relationship Specialty Start Date End Date Bharti Hancock MD [address] [place] [address] PCP - General FAMILY PRACTICE 08/07/21 03/12/22 Hiral Mohamud MD [address] [place], [place] [address] PCP - General FAMILY PRACTICE 03/13/22 Armando Coles MD [address] [place] [address] Consulting Physician CARDIOVASCULAR DISEASE 08/14/21 documented as of this encounter
--- OUTSIDE RECORDS SUMMARY | 2024-11-02 08:56 | XMS_ITS | Encounter Summary ---
Author Organization [facility] Address [address] [place] [address]. [place], [place] [address] [place] [address] Care Team Providers Care Health Safety Instructor Name Role Phone Bharti Hancock MD Primary Care Provider [phone] Armando Coles MD [facility] Hiral Sexton MD Primary Care Provider [phone]- [phone] Encounter Details Date Type Department Care Team (Late st Contact Info) Description 10/13/2021 MyChart Message Enc [facility] Medical Group Multispecialty Care - [address] [address] Bharti Hancock MD [address] [place] [address] [place] [address] REFILS Social History Tobacco Use Types Packs/Day Years [...] have Coronavirus / COVID-19? No / Unsure 09/29/2021 11:31 AM SCAFFOLDER documented as of this encounter Progress Notes * Meghan Langford CMA - 10/13/2021 11:21 AM CST Rx sent to the pharmacy FOLDER * Bharti Hancock MD - 10/13/2021 11:17 AM CST Seems like 50mg BID is correct based on CERAMIC SPRAYER. Ok to refill 50mg BID. FOLDER * Meghan Langford CMA - 10/13/2021 10:27 AM CST Please advise I show the patient has Metoprolol 25 mg BID prescribed and not the 50 mg. FOLDER * Meghan Langford CMA - 10/13/2021 10:25 AM CSTFrom: Martine Manzo To: Dr. Bharti Hancock Sent: 10/13/2021 9:36 AM SCAFFOLDER Subject: REFILS Metoprolol tartrate 50 mg 1 tablet twice daily escitalopram 10 mg 1 tablet per day FOLDER documented in this encounter Plan of Treatment Not on file documented as of this encounter Visit Diagnoses Diagnosis Mixed hyperlipidemia- Primary documented in this encounter Additional Health Concerns Assessment Noted Time PHQ-9 Depression Total Score: 0 08/13/20 1:29 PM CDT documented as of this encounter Care Teams Health Safety Instructor Relationship Specialty Start Date End Date Bharti Hancock MD [address] [place] [address] PCP - General FAMILY PRACTICE 08/07/21 03/12/22 Hiral Mohamud MD [address] [place] [address] PCP - General FAMILY PRACTICE 03/13/22 Armando Coles MD [address] [place] [address] Consulting Physician CARDIOVASCULAR DISEASE 08/14/21 documented as of this encounter
--- OUTSIDE RECORDS SUMMARY | 2024-11-02 08:56 | XMS_ITS | Encounter Summary ---
Author Organization [facility] Address [facility]ly [facility] [place], [place] [address] [place] [address] Care Team Providers Care Taxi Truck Driver Name Role Phone Armando Coles MD [facility] Primary Care Provider [phone]- [phone] Encounter Details Date Type Department Care Team (Late st Contact Info) Description 10/13/2022 MyChart Message Enc [facility] - [facility] [address] [place] [address] Hiral Mohamud MD [address] [place] [address] Refills Social History Tobacco Use Types Packs/Day [...] suspected to have Coronavirus/COVID-19? No / Unsure 09/14/2022 9:20 AM CONGREGATIONAL CARE PASTOR documented as of this encounter Plan of Treatment Not on file documented as of this encounter Visit Diagnoses Not on filedocumented in this encounter Additional Health Concerns Assessment Noted Time PHQ-9 Depression Total Score: 0 10/22/19 22 10:51 AM CONGREGATIONAL CARE PASTOR documented as of this encounter Care Teams Taxi Truck Driver Relationship Specialty [place] [address] [place] [address] PCP - General FAMILY PRACTICE 03/13/22 Armando Coles MD Consulting Physician CARDIOVASCULAR DISEASE 08/14/21 documented as of this encounter
== END 2024-10-28 11:58 | disposition home or self-care (01) ==
PROVIDERS: Emergency Provider Nurse Practitioner Family; PCP Internal Medicine
DX: J40 Bronchitis, not specified as acute or chronic (principal); I10 Essential (primary) hypertension; E78.00 Pure hypercholesterolemia, unspecified; Z95.1 Presence of aortocoronary bypass graft
CPT/HCPCS: 99203; G0463

== ENCOUNTER 2025-07-14 08:16 | Emergency (ER) | payer MEDICARE, SELFPAY ==
--- OUTSIDE RECORDS SUMMARY | 2025-07-14 08:18 | XMS_ITS | Encounter Summary ---
Author Organization [facility] Address [address] [place] [address] Care Team Providers Care Grab Hooker Name Role Phone Armando Coles MD [facility] Hiral Sexton MD Primary Care Provider [phone]- [phone] Encounter Details Date Type Department Care Team (Late st Contact Info) Description 04/09/2022 MyChart Message Enc [facility] Medical Group - [facility] [address] [place] [address] Hiral Mohamud MD [address] [place] [address] Refills Social History Tobacco Use Types Packs/Day [...] Total Score: 0 10/22/19 22 10:51 AM LABOR TRAINING MANAGER documented as of this encounter Care Teams Grab Hooker Relationship Specialty Start Date End Date Hiral Mohamud MD [address] [place] [address] PCP - General FAMILY PRACTICE 03/13/22 Armando Coles MD Consulting Physician CARDIOVASCULAR DISEASE 08/14/21 documented as of this encounter
--- OUTSIDE RECORDS SUMMARY | 2025-07-14 08:18 | XMS_ITS | Encounter Summary ---
Author Organization [facility] Address [address] [place] [address] Care Team Providers Care Learning Support Resource Room Teacher Name Role Phone Armando Coles MD [employer] [facility] [employer] [facility] Hiral Gutierrez MD Primary Care Provider [phone]- [phone] Encounter Details Date Type Department Care Team (Late st Contact Info) Description 10/26/2022 [employer] Message Enc [facility] [address] [place] [address] Armando Coles MD Refills Social History Tobacco [...] Total Score: 0 10/22/19 22 10:51 AM TELEVISION ANALYZER documented as of this encounter Care Teams Learning Support Resource Room Teacher Relationship Specialty Start Date End Date Hiral Mohamud MD [address] [place] [address] PCP - General FAMILY PRACTICE 03/13/22 Armando Coles MD Consulting Physician CARDIOVASCULAR DISEASE 08/14/21 documented as of this encounter
--- OUTSIDE RECORDS SUMMARY | 2025-07-14 08:18 | XMS_ITS | Encounter Summary ---
Author Organization [facility] Address [address] [place] [address] Care Team Providers Care Home Coordinator Name Role Phone Eliseo Jose MD Primary Care Provider Reason for Visit * Reason Comments Labs Only Encounter Details Date Type Department Care Team (Late st Contact Info) Description 12/14/2024 Telephone [facility] Primary Care [address] [place] [address] Eliseo Jose MD [address] [facility] [address] [place] [address] Labs Only Social History Tobacco Use Types Packs/Day Years Used Date Smoking Tobacco: Former Cigarettes Q uit: 1992 Passive Smoke Exposure: Never Smokeless Tobacco: Never Alcohol Use Standard Drinks/Week Comments Yes 2 [...] on file Sexual Orientation Not on file documented as of this encounter Miscellaneous Notes * Telephone Encounter - Eric Pedro - 12/14/2024 12:44 PM CST Informed pt that orders will be faxed to location provided TY ONE DEALER * Telephone Encounter - Elicia Krause - 12/14/2024 10:54 AM CST Copied from [facility] #[id number]. Topic: Patient or Caregiver Communication Request >> Dec 14, 2024 10:52 AM Elicia Rivera wrote: Patient or Caregiver requesting that a message be sent to Care Team Caller: Martine Manzo Patient/Caregiver Callback Number: Telephone Information: Call Notes: states [facility], and she left but is going to make another appt with them. Please fax over labs to this huey. TY ONE DEALER documented in this encounter Plan of Treatment Upcoming Encounters Date Type Department Care Team (Late st Contact Info) Description 07/25/2025 2:00 PM CDT Office Visit [facility] Care [address] [place] [address] Eliseo Jose MD [address] [place] [address] [address] [place] [address] 10/02/2025 11:00 AM TWENTY ONE DEALER Office Visit [facility] [address] [facility] [address] [place] [address] James Rosario MD [facility] [address] [place] [address] 12/27/2025 3:00 PM CDT Office Visit [address] [place] [address] Eliseo Jose MD [address] [place] [address] [address] [place] [address] documented as of this encounter Visit Diagnoses Not on filedocumented in this encounter Care Teams Home Coordinator Relationship Specialty Start Date End Date Eliseo Jose MD [address] [id number] PCP - General Internal Medicine 08/17/23 documented as of this encounter
--- OUTSIDE RECORDS SUMMARY | 2025-07-14 08:18 | XMS_ITS | Clinical Summary ---
Author Organization [facility] Address [address] [place] [address] Care Team Providers Care Community Service Representative Name Role Phone Armando Coles MD, Valerie S MD Primary Care Provider [phone]- [phone] Allergies Active Allergy Reactions Criticality Noted Date Comments Codeine Unknown 03/20/2016 Meperidine Unknown 03/20/2016 Methadone Unknown 08/15/2021 Morphine Unknown 03/20/2016 Naloxone Unknown 03/20/2016 Opium Unknown 08/15/2021 Tramadol Hives 03/20/2016 Medications Aspirin 81 MG Cap Aspirin 81 mg; 1 by mouth every morning; 0; -Jul-2004; Active 4 Active Cholecalciferol (VITAMIN D3) 50 MCG (1999 UT) Tab Take 1 tablet (50 mcg [...] type 03/15/2022 Coronary artery disease invo lving sun'aq coronary artery of sun'aq heart without angina pectoris 08/25/2021 Hx of CABG 08/25/2021 Diastolic dysfunction 08/25/2021 Nonrheumatic mitral valve regurgitation 08/25/20 21 Mixed hyperlipidemia 08/25/2021 Concentric left ventricular hypertrophy 08/25/20 21 Resolved Problems Problem Noted Date Diagnosed Date Resolved Date Preop cardiovascular exam 06/29/2022 Immunizations Immunization Administration Dates Next Due Fluzone High Dose - >Age 65 (Prefilled Syringe) 08/05/2022 Influenza Adult (Generic) 07/21/2021 MODERNA COVID-19 (12+) MRNA, LNP-S, PF, 100 MCG/ 0.5 ML DOSE 12/23/2020,11/25/2020 MODERNA COVID-19 (PALLIATIVE CARE NURSE PRACTITIONER MATT COLIN), MRNA, LNP-S, PF, 50 MCG/ [...] 70 06/30/2023 9:27 AM CDT Temperature 36.3 C (97.3 F) 03/18/2023 9:29 AM CDT Respiratory Rate 18 06/30/2023 9:22 AM CDT Oxygen Saturation 96% 03/18/2023 9:29 AM CDT Inhaled Oxygen Concentration - - Weight 68.6 kg (151 lb 3.2 oz) 06/30/2023 9:22 A M CDT Height 160 cm (5' 3) 06/30/2023 9:22 AM CDT Body Mass Index 26.78 06/30/2023 9:22 AM CDT Plan of Treatment Health Maintenance Due Date Last Done Comments ASCVD Statin 1945 Hepatitis C 1964 DTaP, Tdap and Td Vaccines (1 - Tdap) 1965 Pneumococcal Vaccine: 50+ Years (1 of 2 - PCV) 1965 Zoster Vaccines (1 of 2) 1996 Annual Medicare Wellness Visit 2011 RSV Immunization or 60+ Years (1 - 1-dose 75+ series) 2021 ASCVD LDL 03/18/2024 03/18/2023, 12/0 02/2022, 03/13/2022, Additional history exists PHQ-2 (Physician [place]) 10/11/2024 COVID-19 Vaccine ( season) 2025 09/16/2021, 12/23/2020, 11/25/2020 Dexa Scan (General) Completed 04/19/2023 Meningococcal B [...] T-score of -2.1 and a Z-Score of -0.4. The BMD [...] By: Danny Traore DO, 04/19/2023 2:14 PM us Destin Barrett MD DEXA Final Result * (ABNORMAL) LIPID PANEL (03/18/2023 10:14 AM CDT) CHOLESTEROL 135 <200 MG/DL 03/18/2023 1:37 PM CDT [facility] TRIGLYCERIDES 206(H) <150 MG/DL 03/18/2023 1:37 PM CDT [facility] HDL 39(L) >40 MG/DL 03/18/2023 1:37 PM CDT [facility] LDL-C 55 <100 MG/DL 03/18/2023 1:37 PM CDT [facility] VLDL CALCULATION 41(H) 5 - 28 MG/DL 03/18/2023 1:37 PM CDT [facility] CHOL/HDL RATIO 3.5 0.0 - 4.0 03/18/2023 1:37 PM CDT [facility] LDL/HDL 1.4 0.41 - 2.13 03/18/2023 1:37 PM CDT [facility] NON HDL CHOLESTEROL 96 <140 MG/DL 03/18/2023 1:37 PM CDT [facility] 03/18/2023 10:1 4 AM CDT us Hiral Mohamud MD LABORATORY Final Resu lt [facility] [address] [place] [address], from Last 3 Months or Most Recently Relevant to Health Maintenance Insurance [facility] MEDICARE Care Teams Community Service Representative Relationship Specialty Start Date End Date Hiral Mohamud MD [facility] [place] [address] PCP - General FAMILY PRACTICE 03/13/22 Armando Coles MD Consulting Physician CARDIOVASCULAR DISEASE 08/14/21
--- OUTSIDE RECORDS SUMMARY | 2025-07-14 08:18 | XMS_ITS | Encounter Summary ---
Author Organization [facility] Address [address] [place] [address] Care Team Providers Care Marina Sales And Service Supervisor Name Role Phone Eliseo Jose MD Primary Care Provider [phone] Reason for Visit * Reason Comments Patient Communication Encounter Details Date Type Department Care Team (Late st Contact Info) Description 12/20/2024 Telephone [facility] Primary Care [address] [place] [address] Eliseo Jose MD [address] [facility] [address] [place] [address] Patient Communication Social History Tobacco Use Types Packs/Day Years [...] encounter Miscellaneous Notes * Telephone Encounter - Rylee Smith - 12/21/2024 9:40 AM CDT Spoke with patient and she advised that someone already rescheduled her appointment to June. Patient thanked me for the call to follow up. * Telephone Encounter - Sam Begummaryrohith - 12/20/2024 10:58 AM CDT Copied from [facility] #[id number]. Topic: CPA Information Request >> Dec 20, 2024 10:56 AM Chente Sterling wrote: Caller is returning phone call from clinic. Caller Name: Martine Manzo Patient/Caregiver Callback Number: Telephone Information: Clinic Did Not Leave Note In Chart Call Notes: Patient/Caller returning call, no note documented with instructions from clinic. Transferred to Backline/TRIMMER CLIMBER Line and dyllan answered call. documented in this encounter Plan of Treatment Upcoming Encounters Date Type Department Care Team (Late st Contact Info) Description 07/25/2025 2:00 PM CDT Office Visit [facility] [place] [address] Eliseo Jose MD [address] [place] [address] 10/02/2025 11:00 AM SUPERINTENDENT MAINTENANCE Office Visit [facility] Heart and Vascular At [place] [address] [facility] [address] [place] [address] James Rosario MD [facility] [address] [place] [address] 12/27/2025 3:00 PM CDT Office Visit [address] [place] [address] Eliseo Jose MD [address] [place] [address] [address] [place] [address] documented as of this encounter Visit Diagnoses Not on filedocumented in this encounter Care Teams Marina Sales And Service Supervisor Relationship Specialty Start Date End Date Eliseo Jose MD [address] [place] [address] PCP - General Internal Medicine 08/17/23 documented as of this encounter
--- OUTSIDE RECORDS SUMMARY | 2025-07-14 08:18 | XMS_ITS | Encounter Summary ---
Author Organization [facility] Address [address] [place] [address] Care Team Providers Care Collection Systems Consultant Name Role Phone Armando Coles MD [facility] Primary Care Provider [phone] Encounter Details Date Type Department Care Team (Late st Contact Info) Description 11/19/2022 [employer] Message Enc [facility] - [facility] [address] [place] [address] Hiral Mohamud MD [address] [place] [address] REFILLS Social History Tobacco Use Types Packs/Day [...] Total Score: 0 10/22/19 22 10:51 AM NEIGHBORHOOD CONSERVATION OFFICER documented as of this encounter Care Teams Collection Systems Consultant Relationship Specialty Start Date End Date Hiral Mohamud MD [address] [place] [address] PCP - General FAMILY PRACTICE 03/13/22 Armando Coles MD Consulting Physician CARDIOVASCULAR DISEASE 08/14/21 documented as of this encounter
--- OUTSIDE RECORDS SUMMARY | 2025-07-14 08:18 | XMS_ITS | Patient Health Record ---
Author Organization [facility] Address [address] [place] [address] Care Team Providers Care Blade Boner Name Role Phone Joseluis Winter Primary Care Provider Catherine Muro MD, Trent Unavailable [phone] Allergies Allergen (clinical drug ingredient) Drug/Non Drug Allergy documented on EMR Reaction Allergy Type Onset Date Status meperidine Meperidine HCl Unknown Drug Allergy A ctive methadone Methadone HCl Unknown Drug Allergy Act demetri Morphine Sulfate Unknown Drug Allergy Active opium Opium Unknown Drug Allergy Active tramadol Tramadol HCl Unknown Drug Allergy Acti ve codeine Codeine Unknown Drug Allergy Active Reason For Referral No Information Medications Medication SIG (Take, Route, Frequency, Duration) Notes Start Date End Date Status Escitalopram Oxalate 10 MG 1 tablet Oral ly Once a day Active Nitroglycerin 0.4 MG 1 TAB UNDER TONGUE UP TO 3 TABS IF CP DOES NOT GO AWAY GO TO ER Sublingual QD; Duration: 90 days Active Vascepa 1 GM TAKE 2 CAPSULES BY MOUTH TWICE DAILY WITH MEALS; Duration: 30 Active Metoprolol Tartrate 25 MG 0.5 tablet Ora lly Twice a day Active Atorvastatin Calcium 80 MG 1 tablet Oral ly Once a day Not-Taking NexIUM 20 MG 1 capsule Orally Onc e a day; Duration: 30 day(s) Active Rosuvastatin Calcium 10 MG 1 tablet Oral ly Once a day; Duration: 30 day(s) Active Ranexa 500 MG TAKE 1 TABLET BY TWICE DAILY; Duration: 30 Active Meclizine HCl 25 MG 1 tablet as needed Orally Once a day Active Fenofibrate 160 MG 1 tablet Orally Once a day; Duration: 30 day(s) Active Aspirin 81 MG 1 tablet Orally Once a day Active Zetia 10 MG 1 tablet Orally Once a day Active Vitamin D 125 MCG (5000 UT) Orally Active Super B Complex Acti ve Problems Problem Type SNOMED Code ICD Code Onset Dates Problem Status W/U Status Risk Notes Problem Hyperlipidemia (34596246) Hyperlipidemia (E78.5) Active confirmed Problem Chest pain (36815126) Chest pain (R07.9) Active confirmed Problem Arteriosclerosis of coronary artery bypass graft (703015236) CAD (coronary artery disease) of bypass graft (I25.810) Active confirmed Problem Essential hypertension (08014447) HTN, goal below 130/80 (I10) Active confirmed Plan Of Treatment Pending Test Test Name Order Date Lipid Panel 08/16/2017 Lipid Panel 02/14/2018 Lipid Panel 07/25/2019 Insurance Providers Payer Name Payer Address Payer Phone Subscriber Number Group Number Insured Name Patient Relationship to Insured Coverage Start Date Coverage End Date [employer] [place] (claims) [address] [address] [place] [address] [id number] Martine Lloyd Self - patient is the insured 9 Medical (General) History Medical History History ICD Code hypertension hyperlipidemia Dizziness chest pain shortness of breath CAD s/p CABG in 1991 and redo CABG in Surgical History Surgery Date(Month/Year) Bypass x'S 2 92 & 96 Hospitalization History Reason Date(Month/Year) Rectal prolapes 2010
--- OUTSIDE RECORDS SUMMARY | 2025-07-14 08:18 | XMS_ITS | Encounter Summary ---
Author Organization [facility] Address [address] [place] [address] Care Team Providers Care Used Car Sales Manager Name Role Phone Bharti Hancock MD Primary Care Provider [phone] Armando Coles MD [facility] Hiral Sexton MD Primary Care Provider [phone]- [phone] Encounter Details Date Type Department Care Team (Late st Contact Info) Description 10/13/2021 MyChart Message Enc [facility] Medical Group Multispecialty Care [address] [address] Bharti Hancock MD [address] [place] [address] REFILS Social History Tobacco Use Types [...] COVID-19? No / Unsure 09/29/2021 11:31 AM GAME MASTER documented as of this encounter Progress Notes * Meghan Langford CMA - 10/13/2021 11:21 AM CST Rx sent to the pharmacy MASTER * Bharti Hancock MD - 10/13/2021 11:17 AM CST Seems like 50mg BID is correct based on FORKLIFT MATERIAL HANDLER. Ok to refill 50mg BID. MASTER * Meghan Langford CMA - 10/13/2021 10:27 AM CST Please advise I show the patient has Metoprolol 25 mg BID prescribed and not the 50 mg. MASTER * Meghan Langford CMA - 10/13/2021 10:25 AM CSTFrom: Martine Manzo To: Dr. Bharti Hancock Sent: 10/13/2021 9:36 AM GAME MASTER Subject: REFILS Metoprolol tartrate 50 mg 1 tablet twice daily escitalopram 10 mg 1 tablet per day MASTER documented in this encounter Plan of Treatment Not on file documented as of this encounter Visit Diagnoses Diagnosis Mixed hyperlipidemia- Primary documented in this encounter Additional Health Concerns Assessment Noted Time PHQ-9 Depression Total Score: 0 08/13/20 21 1:29 PM CDT documented as of this encounter Care Teams Used Car Sales Manager Relationship Specialty Start Date End Date Bharti Hancock MD [address] [place] [place] [address] PCP - General FAMILY PRACTICE 08/07/21 03/12/22 Hiral Mohamud MD [address] [place] [address] PCP - General FAMILY PRACTICE 03/13/22 Armando Coles MD [address] [place] [address] Consulting Physician CARDIOVASCULAR DISEASE 08/14/21 documented as of this encounter
--- OUTSIDE RECORDS SUMMARY | 2025-07-14 08:18 | XMS_ITS | Encounter Summary ---
Author Organization [facility] Address [address] [place] [address] Care Team Providers Care Waterworks Chief Engineer Name Role Phone Bharti Hancock MD Primary Care Provider Armando Coles MD [facility] Primary Care Provider [phone]- [phone] Encounter Details Date Type Department Care Team (Late st Contact Info) Description 08/18/2021 [facility] [address] [place] [address] Armando Coles MD Social History Tobacco Use [...] documented as of this encounter Care Teams Waterworks Chief Engineer Relationship Specialty Start Date End Date Bharti Hancock MD [address] [place] [address] PCP - General FAMILY PRACTICE 08/07/21 03/12/22 Hiral Mohamud MD [address] [place] [address] PCP - General FAMILY PRACTICE 03/13/22 Armando Coles MD [address] [place] [address] Consulting Physician CARDIOVASCULAR DISEASE 08/14/21 documented as of this encounter
--- OUTSIDE RECORDS SUMMARY | 2025-07-14 08:18 | XMS_ITS | Encounter Summary ---
Author Organization [facility] Address [address] [place] [address] Care Team Providers Care Ammonia Box Operator Name Role Phone Armando Coles MD [facility] Hiral Sexton MD Primary Care Provider [phone] Encounter Details Date Type Department Care Team (Late st Contact Info) Description 10/13/2022 MyChart Message Enc [facility] Medical [facility] - [facility] [address] [place] [address] Hiral Mohamud MD [address] [place] [address] Refills Social History Tobacco Use Types Packs/Day [...] Coronavirus/COVID-19? No / Unsure 09/14/2022 9:20 AM LINEN ROOM SUPERVISOR documented as of this encounter Plan of Treatment Not on file documented as of this encounter Visit Diagnoses Not on filedocumented in this encounter Additional Health Concerns Assessment Noted Time PHQ-9 Depression Total Score: 0 10/22/19 22 10:51 AM LINEN ROOM SUPERVISOR documented as of this encounter Care Teams Ammonia Box Operator Relationship Specialty Start Date End Date Hiral Mohamud MD [address] [place] [address] PCP - General FAMILY PRACTICE 03/13/22 Armando Coles MD Consulting Physician CARDIOVASCULAR DISEASE 08/14/21 documented as of this encounter
--- OUTSIDE RECORDS SUMMARY | 2025-07-14 08:18 | XMS_ITS | Clinical Summary ---
Author Organization [employer] [employer] ([facility]) [address] [place] [address] Address [address] [place] [address] Care Team Providers Care Managing Jeweler Name Role Phone Eliseo Jose MD Primary Care Provider [phone] Allergies Active Allergy Reactions Criticality Noted Date Comments Codeine Unknown 03/20/2016 Meperidine Unknown 03/20/2016 Methadone Unknown 08/15/2021 Morphine Unknown 03/20/2016 Naloxone Unknown 03/20/2016 Opium Unknown 08/15/2021 Tramadol Hives High 03/20/2016 Medications CALCIUM CARBONATE-VITAMIN D3 ORAL Take by mouth. Activ e aspirin (ANIA CHEWABLE) 81 mg Tablet, Chewable Take 81 mg by mouth daily. Active viatamin B complex-vitamin E-xqfnuzuf-gmjq-fo lic acid 106 mg iron- 1 mg Tablet Take 1 Tablet by mouth daily. Taking B12 daily Active hyoscyamine sulfate 0.125 mg tabletIndications: Chronic diarrhea Take 1 Tablet (0.125 mg) by mouth every 4 hours as needed for Other (See Comment) (diarrhea abd cramping). 90 Tablet 1 3 Active nitroglycerin (NITROSTAT) 0.4 mg Tablet, Sublingual Place 0.4 mg under tongue every 5 minutes as needed. 1 Active diclofenac sodium (VOLTAREN) 1 % gel [...] for Spasm. 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 200 Tablet 3 5 Active ezetimibe (ZETIA) 10 mg tablet Take 1 Tablet (10 mg) by mouth daily. 100 Tablet 3 5 Active metoprolol succinate (Toprol XL) 100 mg Extended Release 24 hour tablet Take 1 Tablet (100 mg) by mouth daily. 100 Tablet 3 5 Active icosapent ethyL (Vascepa) 1 gram Capsule Take 2 Capsules (2 Grams) by mouth 2 times daily with meals. 360 Capsule 2 5 Active escitalopram oxalate (LEXAPRO) 10 mg tablet TAKE 1 TABLET(10 MG) BY MOUTH DAILY 90 Tablet 3 5 Active alendronate (FOSAMAX) 35 mg tablet Take 1 Tablet (35 mg) by mouth every 7 days. empty stomach before other meds,with 8oz of water, stay upright 30 min 12 Tablet 3 5 Active azelastine (ASTELIN) 137 mcg/actuation nasal spray Administer 2 Sprays in each nostril 2 times daily. 30 mL 3 5 Active ipratropium bromide (ATROVENT) 42 mcg (0.06 %) [place], Non-Aerosol Administer 2 Sprays in each nostril 3 times daily. 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 08/25/2021 Hx of CABG 08/25/2021 Mixed hyperlipidemia 08/25/2021 Nonrheumatic mitral valve regurgitation 08/25/20 21 Diastolic dysfunction 08/25/2021 Encounters Date Type Department Care Team Description 06/26/2025 3:20 PM CDT Office Visit [place] [address] [place] [address] Eliseo Jose MD Immunization due (Primary Dx); 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; Other hyperlipidemia; Essential hypertension; Prediabetes 06/26/2025 External Device Data STL ABSTRACTION Provider, Abstract 06/12/2025 External Device Data STL ABSTRACTION Provider, Abstract 05/30/2025 External Device Data ST[place] ABSTRACTION Provider, Abstract 05/15/2025 External Device Data STL ABSTRACTION Provider, Abstract 04/25/2025 External Device Data STL ABSTRACTION Provider, Abstract 04/25/2025 External Device Data STL ABSTRACTION Provider, Abstract 04/20/2025 8:29 AM CDT - 04/20/2025 11:59 PM CDT Hospital Encounter [facility] Bone Density [address] [place] [address] Eliseo Jose MD Discharge Disposition: Home or Self Care 04/20/2025 Results Follow-Up [place] [address] [place] [address] Eliseo Jose MD XR DEXA BONE DENSITY AXIAL 1 OR MORE SITES 04/19/2025 Refill [facility] [address] [place] [phone] Eliseo Jose MD from Last 3 Months Immunizations Immunization Administration Dates Next Due (SHINGRIX)(50 YRS UP) ZOSTER VACCINE RECOMBINANT, 0.5 ML, IM 01/08/2025 (SPIKEVAX) (12 YRS UP PRIMAR Y SERIES) COVID-19 VACCINE - MRNA-1273(PF) 100 MCG/0.5 ML IM SUSP 12/23/2020,11/25/2020 INFLUENZA VACCINE HIGH DOSE QUADRIVALENT 65 YR UP PF IM 08/17/2023,08/05/2022 INFLUENZA VACCINE HIGH DOSE TRIVALENT SPLIT VIRUS, (65 YR UP), 0.5ML (PF), IM 06/26/2025,06/22/2024 Influenza, Unspecified Formulation 07/21/2021 Family History Medical [...] Never Smokeless Tobacco: Never Tobacco Cessation:Counseling Given: No Alcohol Use Standard Drinks/Week Comments Yes 2 [...] Sign Reading Time Taken Comments Blood Pressure 138/79 06/26/2025 3:18 PM CDT Pulse 65 06/26/2025 3:17 PM CDT Temperature 36.4 C (97.6 F) 07/11/2024 11:50 AM CDT Respiratory Rate 18 07/11/2024 12:10 PM CDT Oxygen Saturation 93% 06/26/2025 3:17 PM CDT Inhaled Oxygen Concentration - - Weight 68 kg (150 lb) 06/26/2025 3:17 PM CDT Height 157.5 cm (5' 2) 06/26/2025 3:17 PM CDT Body Mass Index 27.44 06/26/2025 3:17 PM CDT Plan of Treatment Upcoming Encounters Date Type Department Care Team (Late st Contact Info) Description 07/25/2025 2:00 PM CDT Office Visit [facility] [address] [place] [phone] Eliseo Jose MD [address] [place] [address] [address] [place] [phone] 10/02/2025 11:00 AM GUIDE CHANGER Office Visit [facility] [address] [facility] [address] [place] [address] James Rosario MD [address] [facility] [address] [place] [address] 12/27/2025 3:00 PM CDT Office Visit [facility] [address] [place] [address] Eliseo Jose MD [address] [place] [address] [address] [place] [address] Health Maintenance Due Date Last Done Comments DTAP/TDAP/TD VACCINES (1 - Tdap) 1965 PNEUMOCOCCAL VACCINE 50+ YEA RS (1 of 1 - PCV) 1996 RSV VACCINE (60+ or ) (1 - 1-dose 75+ series) 2021 Medicare Advantage ([place]) Preventative Visit/Annual Wellness Visit 10/11/2024 ZOSTER VACCINE (2 of 2) 03/05/2025 01/08/2025 COVID-19 Vaccine (4 - 2024-2 6 season) 2025 09/16/2021, 12/23/2020, 11/25/2020 OSTEOPOROSIS SCREENING 04/20/2030 , 04/19/2023, 04/19/2023 COLORECTAL SCREENING Discontinued 07/11/2024, 07/11/20 24 Colorectal Cancer Screening Discontinued INFLUENZA VACCINE Completed 06/26/2025, , 08/17/2023, Additional history exists FIT-DNA Q 3 years Discontinued FIT/FOBT Q 1 year Discontinued Flex Sig/CT Colonography Q 5 years Discontinued Procedures Procedure Name Priority Date/Time Associated Diagnosis Comments VITAMIN D 25 HYDROXY Routine 06/25/2025 9:28 AM CDT Vitamin D deficiency VITAMIN B12 LEVEL Routine 06/25/2025 9:2 8 AM CDT Myalgia TSH Routine 06/25/2025 9:28 AM CDT Other hyperlipidemia LIPID PANEL Routine 06/25/2025 9:28 AM CDT Other hyperlipidemia HEMOGLOBIN A1C Routine 06/25/2025 9:28 AM CDT Prediabetes COMPREHENSIVE METABOLIC PANEL Routine 06/25/2025 9:28 AM CDT Other hyperlipidemia CBC WITH DIFFERENTIAL Routine 06/25/2025 9:28 AM CDT 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0 pg [facility] MCHC 31.8(L) 32.0 - 36.0 g/dL [facility] Comment: For adults, a slight decrease in the calculated MCHC value (in the range of 30 to 32 g/dL) is most likely not clinically significant; however, it should be interpreted with caution in correlation with other red cell parameters and the patient's clinical condition. RDW 12.4 11.0 - 15.0 % [facility] PLATELETS 294 140 - 400 Thousand/u L [facility] MPV 10.2 7.5 - 12.5 fL [facility] NEUTROPHIL ABSOLUTE 3,258 1,500 - 7,800 cells/uL [facility] LYMPHOCYTE ABSOLUTE 2,070 850 - 3,900 cells/uL [facility] MONOCYTE ABSOLUTE 480 200 - 950 cells/uL [facility] EOSINOPHIL ABSOLUTE 132 15 - 500 cells/uL [facility] BASOPHILS ABSOLUTE 60 0 - 200 cells/uL [facility] NEUTROPHIL 54.3 % [facility] LYMPHOCYTES 34.5 % [facility] MONOCYTE 8.0 % [facility] EOSINOPHILS 2.2 % [facility] BASOPHILS 1.0 % [facility] Comment: FASTING:YES FASTING: YES Test Performed at: [facility] [address] [place] [address] David Zuniga MD Blood 06/25/2025 9:28 AM CDT 06/25/2025 9:28 AM CDT us Eliseo Jose MD HEMATOLOGY ORDERABLES Final R esult [facility] [phone] [facility] [address] [place] [address] * VITAMIN D 25 HYDROXY (06/25/2025 9:28 AM CDT) VITAMIN D, 25 OH, TOTAL 30 30 - 100 ng/mL [facility] Comment: Vitamin D Status 25-OH Vitamin D: Deficiency: <20 ng/mL Insufficiency: 20 - 29 ng/mL Optimal: > or = 30 ng/mL For 25-OH Vitamin D testing on patients on D2-supplementation and patients for whom quantitation of D2 and D3 fractions is required, the [facility](TM) 25-OH VIT D, (D2,D3), LC/MS/MS is recommended: order code 04718 (patients >2yrs). See Note 1 Note 1 For additional information, please refer to http://education.SEEC AB/faq/UAR616 (This link is being provided for informational/ educational purposes only.) FASTING:YES FASTING: YES Test Performed at: [facility] [address] [facility] [place] [address] David Zuniga MD Blood 06/25/2025 9:28 AM CDT 06/25/2025 9:28 AM CDT us Elieso Jose MD CHEMISTRY ORDERABLES Final Re sult [facility] [phone] [facility] [address] [place] [phone] * TSH (06/25/2025 9:28 AM CDT) Pathologist [facility] TSH 2.02 0.40 - 4.50 mIU/L [facility] Comment: Test Performed at: [facility] [address] [facility] [place] [place] [address] David Zuniga MD Blood 06/25/2025 9:28 AM CDT 06/25/2025 9:28 AM CDT us Eliseo Jose MD CHEMISTRY ORDERABLES Final Re sult [facility] [phone] [facility] [address] [facility] [place] [place] [address] * (ABNORMAL) HEMOGLOBIN A1C (06/25/2025 9:28 AM CDT) HEMOGLOBIN A1C 6.0(H) <5.7 % of total Hgb [facility] Comment: For someone without known diabetes, a hemoglobin A1c value between 5.7% and 6.4% is consistent with prediabetes and should be confirmed with a follow-up test. For someone with known diabetes, a value <7% indicates that their diabetes is well controlled. A1c targets should be individualized based on duration of diabetes, age, comorbid conditions, and other considerations. This assay result is consistent with an increased risk of diabetes. Currently, no consensus exists regarding use of hemoglobin A1c for diagnosis of diabetes for children. ESTIMATED AVERAGE GLUCOSE (MG/DL) 126 mg/dL [facility] ESTIMATED AVERAGE GLUCOSE (MMOL/L) 7.0 mmol/L [facility] Comment: FASTING:YES FASTING: YES Test Performed at: [facility] [place] [address] [place] [address] David Zuniga Blood 06/25/2025 9:28 AM CDT 06/25/2025 9:28 AM CDT Eliseo Jose MD CHEMISTRY ORDERABLES Final Re sult [facility] [phone] [place] [address] [place] [address] * (ABNORMAL) VITAMIN B12 LEVEL (06/25/2025 9:28 AM CDT) Pathologist [facility] VITAMIN B12 1355(H) 200 - 1100 pg/mL [facility] Comment: Test Performed at: [facility] [address] [facility] [address] AnushaMonserrat Zuniga MD Blood 06/25/2025 9:28 AM CDT 06/25/2025 9:28 AM CDT Eliseo Jose MD CHEMISTRY ORDERABLES Final Re sult [facility] [phone] [facility] [address] [place] [address] * (ABNORMAL) LIPID PANEL (06/25/2025 9:28 AM CDT) CHOLESTEROL 101 <200 mg/dL [facility] HDL 33(L) > OR = 50 mg/dL [facility] TRIGLYCERIDE 199(H) <150 mg/dL [facility] LDL CALCULATED 41 mg/dL (calc) [facility] Comment: Reference range: <100 Desirable range <100 mg/dL for primary prevention; <70 mg/dL for patients with CHD or diabetic patients with > or = 2 CHD risk factors. LDL-C is now calculated using the Yosef-Marin calculation, which is a validated novel method providing better accuracy than the Friedewald equation in the estimation of LDL-C. Yosef TEJEDA et al. KYRIE. 2013;310(19): 8111-7450 (http://education.SEEC AB/faq/DEL928) CHOL/HDL RATIO 3.1 <5.0 (calc) [facility] NON-HDL CHOLESTEROL 68 <130 mg/dL (calc) [facility] Comment: For patients with diabetes plus 1 major ASCVD risk factor, treating to a non-HDL-C goal of <100 mg/dL (LDL-C of <70 mg/dL) is considered a therapeutic option. Test Performed at: [facility] [address] [place] [address] David Zuniga MD Blood 06/25/2025 9:28 AM CDT 06/25/2025 9:28 AM CDT us Eliseo Jose MD CHEMISTRY ORDERABLES Final Re sult [facility] [phone] [facility] [address] [place] [address] * (ABNORMAL) COMPREHENSIVE METABOLIC PANEL (06/25/2025 9:28 AM CDT) [facility] GLUCOSE 93 65 - 99 mg/dL [facility] Comment: Fasting reference interval BUN 12 7 - 25 mg/dL [facility] CREATININE 0.76 0.60 - 1.00 mg/dL [facility] GFR 80 > OR = 60 mL/min/1. 73m2 [facility] BUN/CREAT RATIO SEE NOTE: 6 - 22 (calc) [facility] Comment: Not Reported: BUN and Creatinine are within reference range. SODIUM 138 135 - 146 mmol/L [facility] POTASSIUM 4.4 3.5 - 5.3 mmol/L [facility] CHLORIDE 103 98 - 110 mmol/L [facility] CO2 28 20 - 32 mmol/L [facility] CALCIUM 9.2 8.6 - 10.4 mg/dL [facility] TOTAL PROTEIN 6.5 6.1 - 8.1 g/dL [facility] ALBUMIN 4.3 3.6 - 5.1 g/dL [facility] GLOBULIN 2.2 1.9 - 3.7 g/dL (calc) [facility] ALBUMIN/GLOBULIN RATIO 2.0 1.0 - 2.5 (calc) [facility] BILIRUBIN TOTAL 0.5 0.2 - 1.2 mg/dL [facility] ALKALINE PHOSPHATASE 34(L) 37 - 153 U/L [facility] AST 20 10 - 35 U/L [facility] ALT 9 6 - 29 U/L [facility] Comment: Test Performed at: [facility] [address] [place] [address] David Zuniga MD Blood 06/25/2025 9:28 AM CDT 06/25/2025 9:28 AM CDT us Eliseo Jose MD CHEMISTRY ORDERABLES Final Re sult [facility] [phone] [facility] [address] [place] [address] * XR DEXA BONE DENSITY AXIAL 1 OR MORE SITES (04/20/2025 8:39 AM CDT) Anatomical Region Laterality Modality Digital Radiogra phy 04/20/2025 8:40 AM CDT Impressions 04/20/2025 12:04 PM CDT IMPRESSION: Osteopenia. Clinical Osteoporosis may be based on other factors besides DXA calculated BMD. Other factors include and are not limited to fragility fractures, subclinical compression fractures,osteopenia and elevated FRAX Scores. A major osteoporotic fracture is defined as a fracture of the spine, forearm, hip or shoulder. Definitions: Normal: T-score above -1.0 Osteopenia T-score less than -1.0 and above -2.5 Osteoporosis: T-score <= -2.5 DICTATION LOCATION: [address] 04/20/2025 12:04 PM CDT EXAMINATION: BONE DENSITY STUDY (DXA) DATE: 04/20/2025 8:39 AM HISTORY: 79 years Female presenting osteoporosis screening. PROCEDURE: Planar images of either or the lumbar spine, hips, wrists, lateral topogram of the thoracolumbar spine. FINDINGS: Lumbar Spine: (L1-L4) T-score: -1.8 Thoracolumbar spine lateral topogram: Not performed Left Femoral Neck: T-score: -1.9 Left Total Femur: T-score: -1.5 Right Femoral Neck: T-score: -1.8 Right Total Femur: T-score: -1.4 Left 33% Radius: T-Score: Not obtained. Right 33% Radius T-score: Not obtained. FRAX FRACTURE RISK ASSESSMENT: 10-Year probability of major osteoporotic fracture: 22.1 % 10-Year probability of hip fracture: 8.4 % Procedure Note Sridhar Marie MD - 04/20/2025 EXAMINATION: BONE DENSITY STUDY (DXA) DATE: 04/20/2025 8:39 AM HISTORY: 79 years Female presenting osteoporosis screening. PROCEDURE: Planar images of either or the lumbar spine, hips, wrists, lateral topogram of the thoracolumbar spine. FINDINGS: Lumbar Spine: (L1-L4) T-score: -1.8 Thoracolumbar spine lateral topogram: Not performed Left Femoral Neck: T-score: -1.9 Left Total Femur: T-score: -1.5 Right Femoral Neck: T-score: -1.8 Right Total Femur: T-score: -1.4 Left 33% Radius: T-Score: Not obtained. Right 33% Radius T-score: Not obtained. FRAX FRACTURE RISK ASSESSMENT: 10-Year probability of major osteoporotic fracture: 22.1 % 10-Year probability of hip fracture: 8.4 % IMPRESSION: Osteopenia. Clinical Osteoporosis may be based on other factors besides DXA calculated BMD. Other factors include and are not limited to fragility fractures, subclinical compression fractures,osteopenia and elevated FRAX Scores. A major osteoporotic fracture is defined as a fracture of the spine, forearm, hip or shoulder. Definitions: Normal: T-score above -1.0 Osteopenia T-score less than -1.0 and above -2.5 Osteoporosis: T-score <= -2.5 DICTATION LOCATION: Location 2 [facility] us Eliseo Jose MD DIAGNOSTIC IMAGING ORDERABLES Final Result * COLONOSCOPY REPORT (07/11/2024 11:49 AM CDT) Narrative Procedure Note Jennifer Saldivar MD - 07/11/2024 11:49 AM CDT [facility] Endoscopy Patient Name: Martine Manzo Procedure Date: [...] signed electronically. Number of Addenda: 0 [phone] [facility]; [place] [address] Jennifer Saldivar MD GI PROCEDURE ORDERABLES F inal Result from Last 3 Months or Most Recently Relevant to Health Maintenance Insurance [facility] Address: [address] [address] Care Teams Managing Jeweler Relationship Specialty Start Date End Date Eliseo Jose MD [address] [phone] PCP - General Internal Medicine 08/17/23
--- OUTSIDE RECORDS SUMMARY | 2025-07-14 08:18 | XMS_ITS | Encounter Summary ---
Author Organization [facility] Address [address] [place] [address] Care Team Providers Care Shop Router Name Role Phone Armando Coles MD [facility] Hiral Sexton MD Primary Care Provider [phone] Encounter Details Date Type Department Care Team (Late st Contact Info) Description 08/24/2022 MyChart Message Enc [facility] - [facility] [address] [place] [address] Hiral Mohamud MD [address] [place] [address] Refills Social History Tobacco Use Types Packs/Day [...] Total Score: 0 10/22/19 22 10:51 AM HAND ALTERATIONS TAILOR documented as of this encounter Care Teams Shop Router Relationship Specialty Start Date End Date Hiral Mohamud MD [address] [place] [address] PCP - General FAMILY PRACTICE 03/13/22 Armando Coles MD Consulting Physician CARDIOVASCULAR DISEASE 08/14/21 documented as of this encounter
--- OUTSIDE RECORDS SUMMARY | 2025-07-14 08:18 | XMS_ITS | Encounter Summary ---
Author Organization [facility] Address [address] [place] [address] Care Team Providers Care Life Coach Name Role Phone Armando Coles MD [facility] Hiral Sexton MD Primary Care Provider [phone] Encounter Details Date Type Department Care Team (Late st Contact Info) Description 07/13/2022 eShareshart Message Enc [facility] Medical [facility] - [facility] [address] [place] [address] Hiral Mohamud MD [address] [place] [address] Refills Social History Tobacco Use Types Packs/Day [...] Total Score: 0 10/22/19 22 10:51 AM WOMEN SPECIALIST documented as of this encounter Care Teams Life Coach Relationship Specialty Start Date End Date Hiral Mohamud MD [address] [place] [address] PCP - General FAMILY PRACTICE 03/13/22 Armando Coles MD Consulting Physician CARDIOVASCULAR DISEASE 08/14/21 documented as of this encounter
--- OUTSIDE RECORDS SUMMARY | 2025-07-14 08:18 | XMS_ITS | Encounter Summary ---
Author Organization [facility] Address [facility] [place] [address] Care Team Providers Care Volumetric Weigher Name Role Phone Bharti Hancock MD Primary Care Provider [phone] Armando Coles MD [facility] [place] MD Primary Care Provider [phone] Encounter Details Date Type Department Care Team (Late st Contact Info) Description 09/15/2021 [id number] Message Enc [facility] eld [address] [place] [phone] Armando Coles MD follow up Social History [...] COVID-19? No / Unsure 09/16/2021 11:50 AM DISPATCH SUPERVISOR documented as of this encounter Plan of Treatment Not on file documented as of this encounter Visit Diagnoses Not on filedocumented in this encounter Additional Health Concerns Assessment Noted Time PHQ-9 Depression Total Score: 0 08/13/20 21 1:29 PM CDT documented as of this encounter Care Teams Volumetric Weigher Relationship Specialty Start Date End Date Bharti Hancock MD [address] [place] [address] PCP - General FAMILY PRACTICE 08/07/21 03/12/22 Hiral Mohamud MD [facility] [place] [id number] PCP - General FAMILY PRACTICE 03/13/22 Armando Coels MD [address] [place] [address] Consulting Physician CARDIOVASCULAR DISEASE 08/14/21 documented as of this encounter
--- OUTSIDE RECORDS SUMMARY | 2025-07-14 08:18 | XMS_ITS | Encounter Summary ---
Author Organization [facility] Address [address] [place] [address] Care Team Providers Care Supervisor Metal Furniture Fabrication Name Role Phone [facility]es MD [facility] Primary Care Provider [phone] Encounter Details Date Type Department Care Team (Late st Contact Info) Description 06/23/2023 Abstract [facility] [place] [address] Armando Cloes MD Social History Tobacco Use Types Packs/Day Years Used Date Smoking Tobacco: Former Cigarettes 0.3 15 1 977 - 1992 Smokeless Tobacco: Never Tobacco Cessation:Counseling Given: Not [...] Total Score: 0 10/22/19 22 10:51 AM LUMBER CARRIER OPERATOR documented as of this encounter Care Teams Supervisor Metal Furniture [employer]ation Relationship Specialty Start Date End Date Hiral Mohamud MD [address] [place], [place] [address] PCP - General FAMILY PRACTICE 03/13/22 Armando Coles MD Consulting Physician CARDIOVASCULAR DISEASE 08/14/21 documented as of this encounter
--- OUTSIDE RECORDS SUMMARY | 2025-07-14 08:18 | XMS_ITS | Encounter Summary ---
Author Organization [facility] Address [address] [place] [address] Care Team Providers Care Realty Loan Specialist Name Role Phone Armando [facility]es MD [facility] Primary Care Provider [phone]- [phone] Encounter Details Date Type Department Care Team (Late st Contact Info) Description 02/22/2023 eCaringt Message Enc [facility] - [facility] [address] [place] [address] Hiral Mohamud MD [address] [place] [address] Refill Social History Tobacco Use Types Packs/Day [...] Total Score: 0 10/22/19 22 10:51 AM EXCHANGE CLERK documented as of this encounter Care Teams Realty Loan Specialist Relationship Specialty Start Date End Date Hiral Mohamud MD [address] [place] [address] PCP - General FAMILY PRACTICE 03/13/22 Armando Coles MD Consulting Physician CARDIOVASCULAR DISEASE 08/14/21 documented as of this encounter
--- OUTSIDE RECORDS SUMMARY | 2025-07-14 08:18 | XMS_ITS | Encounter Summary ---
Author Organization [facility] Address [address] [place] [address] Care Team Providers Care Manager Of Data Name Role Phone Armando Coles MD [facility] Primary Care Provider [phone]- [phone] Encounter Details Date Type Department Care Team (Late st Contact Info) Description 01/12/2023 CRITICAL TECHNOLOGIEShart Message Enc [facility] - [facility] [address] [place] [address] Hiral Mohamud MD [address] [place] [address] Refills Social History Tobacco Use Types Packs/Day [...] Total Score: 0 10/22/19 22 10:51 AM OCCUPATIONAL REHABILITATION AIDE documented as of this encounter Care Teams Manager Of Data Relationship Specialty Start Date End Date Hiral Mohamud MD [address] [place] [address] PCP - General FAMILY PRACTICE 03/13/22 Armando Coles MD Consulting Physician CARDIOVASCULAR DISEASE 08/14/21 documented as of this encounter
--- OUTSIDE RECORDS SUMMARY | 2025-07-14 08:18 | XMS_ITS | Encounter Summary ---
Author Organization [facility] Address [facility]ly [facility] [place] [address] Care Team Providers Care Asw/Asuw Tactical Air Controller Name Role Phone Bharti Hancock MD Primary Care Provider [phone] [facility]es [facility] Primary Care Provider +- [phone] Encounter Details Date Type Department Care Team (Late st Contact Info) Description 01/27/2022 [place] Residential Message Enc [facility] el[facility] [address] [place] [id number] Armando Coles MD Refill Social History Tobacco [...] Total Score: 0 10/22/19 22 10:51 AM FLATBED DRIVER documented as of this encounter Care Teams Asw/Asuw Tactical Air Controller Relationship Specialty Start Date End Date Bharti Hancock MD [address] [place] [address] PCP - General FAMILY PRACTICE 08/07/21 03/12/22 Hiral Mohamud MD [address] [place], [place] [id number] PCP - General FAMILY PRACTICE 03/13/22 Armando Coles MD [address] [place] [address] Consulting Physician CARDIOVASCULAR DISEASE 08/14/21 documented as of this encounter
--- OUTSIDE RECORDS SUMMARY | 2025-07-14 08:18 | XMS_ITS | Encounter Summary ---
Author Organization [facility] Address [address] [place] [address] Care Team Providers Care Special Delivery Clerk Name Role Phone Armando Coles MD [facility] Hiral Sexton MD Primary Care Provider [phone]- [phone] Encounter Details Date Type Department Care Team (Late st Contact Info) Description 08/24/2023 MyChart Message [facility] [address] [address] 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
[2025-07-14 08:20] VITALS: BP 131/74; PULSE 95; RESP 20; TEMP 36.5; O2SAT 94
[2025-07-14 08:47] LABS: EDCOVIDSCREEN Negative (Negative); EDINFLUASCREEN Negative (Negative); EDINFLUBSCREEN Negative (Negative); EDSTREPNEGPOS1 Negative (Negative)
--- NOTE | 2025-07-14 09:00 | ED.URI ---
HPI - URI/Sore Throat General Chief Complaint: Upper Respiratory Infection Stated Complaint: cough/throat Time Seen by Provider: 07/14/25 08:50 Source: patient and RN notes reviewed Mode of arrival: ambulatory Limitations: no limitations History of Present Illness HPI Narrative: 79-year-old female presents Express Care complaining of mucopurulent cough, congestion, sore throat, runny nose, body aches for approximately 4 days. Patient has any fevers, chills, nausea, vomiting, diarrhea, abdominal pain, chest pain, difficulty breathing, shortness of breath, earache, leg swelling, orthopnea, his symptoms. Patient reports cough is worse at night especially when she lies flat. Patient has not tried anything [id number] to help with symptoms. Patient has significant past medical history of coronary bypass surgery. Patient feels like symptoms are worsening. Related Data Home Medications ?Medication ?Instructions ?Recorded ?Confirmed ?Last Taken ?Type escitalopram oxalate 10 mg tablet 10 mg PO DAILY 10/28/24 Unknown History ezetimibe 10 mg tablet 10 mg PO DAILY 10/28/24 Unknown History fenofibrate 160 mg tablet 160 mg PO DAILY 10/28/24 Unknown History icosapent ethyl 1 gram capsule 2 g PO BID 10/28/24 Unknown History (Vascepa) metoprolol tartrate 50 mg tablet 50 mg PO Q12H 10/28/24 Unknown History ranolazine 500 mg tablet,extended 500 mg PO Q12H 10/28/24 Unknown History release,12 hr rosuvastatin 40 mg tablet 40 mg PO DAILY 10/28/24 Unknown History spironolactone 25 mg tablet 12.5 mg PO DAILY 10/28/24 Unknown History alendronate 35 mg tablet mg PO 07/14/25 Unknown History metoprolol succinate 100 mg mg PO 07/14/25 Unknown History tablet,extended release 24 hr Allergies Allergy/AdvReac Type Severity Reaction Status Date / Time PAIN MEDS AdvReac Intermediate Nausea and Uncoded 10/28/24 11:52 Vomiting Review of Systems Review of Systems: CONSTITUTIONAL: Denies fever, chills, or sweats. Positive for body aches. EYES: Denies visual changes, redness, or discharge. ENT: Positive for rhinorrhea, congestion, sore throat. Negative for otalgia. CARDIOVASCULAR: Denies chest pain, palpitations, orthopnea, dizziness, lightheadedness, or edema. RESPIRATORY: Positive for cough. Negative for wheezing, difficulty breathing, dyspnea. GASTROINTESTINAL: Denies abdominal pain, nausea, vomiting, or diarrhea. GENITOURINARY: Denies dysuria or hematuria. SKIN: Denies rash or itching. MUSCULOSKELETAL: Denies back pain, joint pain, or myalgia. NEUROLOGIC: Denies headache, numbness, or weakness. PSYCHIATRIC: Denies anxiety or depression. All other systems reviewed are negative, except as documented in HPI. PMFSH Comments At the time of my signature, I reviewed and agree with the nursing past medical, surgical, social, and family history. There is no relevant family history pertinent to the patient complaint. Exam Narrative: GENERAL: This is a well-nourished, well-developed adult, in no apparent distress. They are non ill-appearing, nontoxic appearing. HEAD: normocephalic, atraumatic. EYES: Sclera clear/white. Conjunctiva normal. Vision is grossly intact. Extraocular movements intact EARS: External ears normal, auditory canals clear and without drainage, TMs normal without perforation. Hearing grossly intact. NOSE: External nose normal with no obvious nasal discharge, nasal turbinates erythemic without swelling, no rhinorrhea. THROAT: Mucous membranes moist, posterior pharynx erythematous. Uvula midline. Postnasal drip present. NECK: Neck supple, non-tender without lymphadenopathy, masses or thyromegaly. CARDIOVASCULAR: Regular rate and rhythm without murmurs, gallops, or rubs. RESPIRATORY: Right lower lobe course. Otherwise lungs clear throughout. Breath sounds equal bilaterally. No wheezes, rales, or rhonchi. SKIN: warm, Dry, intact with no suspicious lesions or rash, good texture and turgor. NEURO: awake, alert, and oriented to person, place and time. There were no obvious focal neurologic abnormalities. EXTREMITIES: No joint tenderness, effusion, or edema noted. BACK: Nontender without deformity. No CVA tenderness. Course Course Emergency Course: Portions of this record may have been created with voice recognition software Level of Care: Express Care Visit Vital Signs Vital signs: Vital Signs Temperature 97.7 F 07/14/25 08:20 Pulse Rate 95 07/14/25 08:20 Respiratory Rate 20 07/14/25 08:20 Blood Pressure 131/74 07/14/25 08:20 Pulse Oximetry 94 07/14/25 08:20 Oxygen Delivery Room Air 07/14/25 08:20 Temperature 97.7 F 07/14/25 08:20 Pulse Rate 95 07/14/25 08:20 Respiratory Rate 20 07/14/25 08:20 Blood Pressure 131/74 07/14/25 08:20 Pulse Oximetry 94 07/14/25 08:20 Oxygen Delivery Room Air 07/14/25 08:20 Reviewed MDM - URI/Sore Throat MDM Narrative Medical decision making narrative: Rapid COVID, flu, strep were negative. A throat culture is pending. Patient likely has a purulent bronchitis. Given patient's worsening symptoms and heart history will go ahead and treat with doxycycline and Augmentin. Will prescribe benzonatate as needed for cough. Patient's vital signs hemodynamically stable, she is in no apparent distress, nontoxic appears appearing. Discussed physical exam findings. Advised supportive measures and signs/symptoms to go to the ER. Pt is appropriate for outpt treatment and f/u. Differential Diagnosis Differential diagnosis: Likely upper respiratory infection, sinusitis, viral infection, bronchitis, pharyngitis and other (Pneumonia) Lab Data Attestation: I reviewed the patient's lab results. Labs: Lab Results 07/14/25 Range/Units 08:26 POC Influenza A Ag Negative (Negative) POC Influenza B Ag Negative (Negative) POC SARS CoV-2 Ag Negative (Negative) POC Grp A Strep Screen Negative (Negative) Critical Care Time Critical Care Time Critical Care Time: No Discharge Plan Discharge Clinical Impression: Acute purulent bronchitis Patient Disposition: Home Condition: Stable Instructions: Antibiotic Form, Acute Bronchitis (ED) Additional Instructions: Your rapid COVID, flu, strep were negative. A throat culture will be sent off and if it is positive for strep you will be contacted. Take Augmentin as directed. Take doxycycline as directed. Please wear sunscreen if you are going to be outside while taking doxycycline. Take benzonatate as needed for cough. Recommend Flonase spray 2 sprays each nostril daily for 5 days. You may take this Zyrtec or Claritin as needed for congestion, follow instructions on the bottle. May take Tylenol as needed for pain or fevers. You may take up to 1000 mg Tylenol every 6-8 hours. Do not exceed 1000 mg per dose, do exceed more than 4000 mg of Tylenol in a day. Symptomatic treatment includes: rest, fluids, and increase humidity of the air at home. Follow up with your primary care provider 5-7 days Go to the ER for worsening symptoms, chest pains, shortness of breath, difficulty breathing, nausea, vomiting, will fevers, or any serious concerns. Patient Language: Macanese Prescriptions: New amoxicillin-pot clavulanate 875-125 mg tablet 1 tablet PO Q12H 5 Days Qty: 10 0RF doxycycline monohydrate 100 mg capsule 100 mg PO BID 5 Days Qty: 10 0RF benzonatate 100 mg capsule 100 mg PO TID PRN (Reason: cough) Qty: 20 0RF No Action spironolactone 25 mg tablet 12.5 mg PO DAILY fenofibrate 160 mg tablet 160 mg PO DAILY icosapent ethyl [Vascepa] 1 gram capsule 2 g PO BID ranolazine 500 mg tablet extended release 12 hr 500 mg PO Q12H rosuvastatin 40 mg tablet 40 mg PO DAILY escitalopram oxalate 10 mg tablet 10 mg PO DAILY metoprolol tartrate 50 mg tablet 50 mg PO Q12H ezetimibe 10 mg tablet 10 mg PO DAILY metoprolol succinate 100 mg tablet extended release 24 hr PO alendronate 35 mg tablet PO Follow-up/Referrals: Damon,Eliseo Lion MD [Primary Care Provider] Time of Disposition: 08:57
== END 2025-07-14 09:03 | disposition home or self-care (01) ==
PROVIDERS: PCP Internal Medicine
DX: J20.9 Acute bronchitis, unspecified (principal); Z20.822 Contact with and (suspected) exposure to COVID-19; I25.10 Atherosclerotic heart disease of native coronary artery without angina pectoris; I10 Essential (primary) hypertension; E78.00 Pure hypercholesterolemia, unspecified; Z95.1 Presence of aortocoronary bypass graft; F41.9 Anxiety disorder, unspecified
CPT/HCPCS: 87081; 87426; 87804; 87880; 99213; G0463